=== PATIENT | male | born 1945 | race Caucasian/White ===

== ENCOUNTER 2017-07-04 09:46 | Emergency (ER) | payer OTHER ==
[~2017-07-04] VITALS: Ht 172.7 cm; Wt 70.3 kg
[~2017-07-04 09:46] MED LIST: ALBIPROI INH; ALBU90OI61 INH; AMOCLA875 PO; ANTOXYBENA LEFTEAR; ASPI81CH PO; ATOR20 PO; AZIT250 PO; Augmentin 875-1 EACH PO; BISA5EC PO; BUDE6HFA INH; BUSP10 PO; Bactrim Ds Tab1 EACH PO; Benadryl 50 mg50 MG PO; CENTRUM SILVER1 EAC2 PO; CEPH500 PO; CIPR500 PO; CITA20 PO; CODACE30 PO; CYCL10 PO; Ciprodex Otic7.5 ML LEFTEAR; DIPH50; DIPH50 PO; DOCU100 PO; Flonase 0.05% N16 GM; HYDACE5 PO; HYDACE5325 PO; HYDCOR2.5C PR; HYDR1TAB94 PO; Hydrocodone-Ap1 EA23 PO; IBUP800 PO; METPRE2; METPRE4DP PO; MULVITMIND PO; NEOPOLHCSU LEFTEAR; Norco 5-325 Ta1 EACH PO; OMEP20ER; OMEP20ER PO; OMEP40CA12 PO; ONDA4ODT MM; OXYACE5T PO; PRED20 PO; Pepcid20 MG PO; Prednisone20 MG PO; SALM50IP INH; TAMS.4ER PO; TIOT18 INH; UNK ABX; Ultram50 MG PO; VENLAFAXINE HC150 MG PO; Ventolin5 MG/1 ML INH; Zithromax250 MG PO; Zofran4 MG PO; [UNRECOGNIZED DRUG - REMARK]
[2017-07-04 10:58] LABS: BASOPHILS ABSOLUTE AUTO 0.03 K/mm3 (0.00-0.23); BASOPHILS PERCENT AUTO 0 % (0-2); EOSINOPHILS ABSOLUTE AUTO 0.19 K/mm3 (0.00-0.68); EOSINOPHILS PERCENT AUTO 3 % (0-6); Hematocrit 34.6 % (37.0-53.0); Hemoglobin 11.9 g/dL (13.5-17.5); IMMATURE GRAN ABSOLUTE AUTO 0.02 K/mm3 (0.00-0.10); IMMATURE GRAN PERCENT AUTO 0 % (0-1); LYMPHOCYTES ABSOLUTE AUTO 1.63 K/mm3 (0.84-5.20); LYMPHOCYTES PERCENT AUTO 23 % (21-46); MONOCYTES ABSOLUTE AUTO 0.48 K/mm3 (0.16-1.47); MONOCYTES PERCENT AUTO 7 % (4-13); Mean Corpuscular HGB 31.6 pg (26.0-34.0); Mean Corpuscular HGB Conc 34.4 g/dL (31.5-36.5); Mean Corpuscular Volume 92 fL (80-100); Mean Platelet Volume 8.2 fL (9.1-12.4); NEUTROPHILS ABSOLUTE AUTO 4.66 K/mm3 (1.96-9.15); NEUTROPHILS PERCENT AUTO 67 % (41-73); Platelet Count 268 K/mm3 (150-400); RDW Coefficient Variation 12.7 % (11.7-14.2); RDW Standard Deviation 43.2 fL (35.1-46.3); Red Blood Cell Count 3.76 M/mm3 (4.30-5.90); White Blood Cell Count 7.01 K/mm3 (4.00-11.30)
[2017-07-04 11:16] LABS: Alanine Aminotransfer (ALT/SGP 15 U/L (12-78); Albumin, Blood 3.4 g/dL (3.4-5.0); Albumin/Globulin Ratio 0.9 (0.8-1.8); Alk Phos 63 U/L (50-136); Anion Gap 7 mmol/L (6-16); Aspartate Aminotrans (AST/SGOT 15 U/L (12-37); Bilirubin, Total 0.4 mg/dL (0.1-1.0); Blood Urea Nitrogen 14 mg/dL (8-24); Bun/Creatinine Ratio 17.1 (12.0-20.0); CO2, Blood 27 mmol/L (21-32); Calcium, Blood 8.7 mg/dL (8.5-10.1); Chloride, Blood 104 mmol/L (98-108); Creatinine, Blood 0.82 mg/dL (0.60-1.20); Globulin, Blood 3.6 g/dL (2.2-4.0); Glomerular Filtration Rate >60 (60-); Glucose, Blood 91 mg/dL (70-99); Potassium, Blood 4.2 mmol/L (3.5-5.5); Sodium, Blood 138 mmol/L (136-145); Troponin I <0.015 ng/mL (0.000-0.040)
[2017-07-04] MEDS ORDERED: Advair Hfa 230-12 GM (11:42)
[2017-07-04] MEDS ORDERED: Omeprazole20 M1 (11:42)
[2017-07-04] MEDS ORDERED: SPIRIVA RESPIMAT4 G1 IH (11:43)
[2017-07-04] MEDS ORDERED: Prednisone20 MG PO (12:00)
[2017-07-04] MEDS ORDERED: Monodox100 MG PO (12:00)
[2017-07-04] MEDS ORDERED: Pseudoephedrine30 MG PO (12:00)
== END 2017-07-04 12:33 | disposition home or self-care (01) ==
LOC: ER 09:46
PROVIDERS: Emergency Medicine
DX: J44.1 Chronic obstructive pulmonary disease with (acute) exacerbation (principal); J32.9 Chronic sinusitis, unspecified; K21.9 Gastro-esophageal reflux disease without esophagitis; Z79.899 Other long term (current) drug therapy; Z87.891 Personal history of nicotine dependence
CPT/HCPCS: 36415; 71046; 80053; 84484; 85025; 93005; 93010; 99284

== ENCOUNTER 2017-12-10 16:10 | Emergency (ER) | payer OTHER ==
[~2017-12-10] VITALS: Ht 172.7 cm; Wt 72.6 kg
[~2017-12-10 16:10] MED LIST changes: +Advair Hfa 230-12 GM; +Monodox100 MG PO; +Omeprazole20 M1; +Pseudoephedrine30 MG PO; +SPIRIVA RESPIMAT4 G1 IH
[2017-12-10] MEDS ORDERED: NEOPOLHCSU LEFTEAR (16:37)
[2017-12-10] MEDS ORDERED: Norco 5-325 Ta1 EACH PO (16:37)
== END 2017-12-10 16:45 | disposition home or self-care (01) ==
LOC: ER 16:10
DX: H60.92 Unspecified otitis externa, left ear (principal); J44.9 Chronic obstructive pulmonary disease, unspecified; K21.9 Gastro-esophageal reflux disease without esophagitis; Z79.899 Other long term (current) drug therapy; Z79.51 Long term (current) use of inhaled steroids; Z87.891 Personal history of nicotine dependence
CPT/HCPCS: 99282

== ENCOUNTER 2017-12-11 14:45 | Emergency (ER) | payer OTHER ==
[~2017-12-11] VITALS: Ht 172.7 cm; Wt 72.6 kg
[2017-12-11 15:16] LABS: BASOPHILS ABSOLUTE AUTO 0.02 K/mm3 (0.00-0.23); BASOPHILS PERCENT AUTO 0 % (0-2); EOSINOPHILS PERCENT AUTO 5 % (0-6); Hematocrit 31.6 % (37.0-53.0); Hemoglobin 11.1 g/dL (13.5-17.5); IMMATURE GRAN ABSOLUTE AUTO 0.02 K/mm3 (0.00-0.10); IMMATURE GRAN PERCENT AUTO 0 % (0-1); LYMPHOCYTES ABSOLUTE AUTO 1.53 K/mm3 (0.84-5.20); LYMPHOCYTES PERCENT AUTO 23 % (21-46); MONOCYTES ABSOLUTE AUTO 0.48 K/mm3 (0.16-1.47); MONOCYTES PERCENT AUTO 7 % (4-13); Mean Corpuscular HGB 32.2 pg (26.0-34.0); Mean Corpuscular HGB Conc 35.1 g/dL (31.5-36.5); Mean Corpuscular Volume 92 fL (80-100); Mean Platelet Volume 8.5 fL (9.1-12.4); NEUTROPHILS ABSOLUTE AUTO 4.21 K/mm3 (1.96-9.15); NEUTROPHILS PERCENT AUTO 64 % (41-73); Platelet Count 222 K/mm3 (150-400); RDW Coefficient Variation 12.9 % (11.7-14.2); RDW Standard Deviation 42.6 fL (35.1-46.3); Red Blood Cell Count 3.45 M/mm3 (4.30-5.90); White Blood Cell Count 6.56 K/mm3 (4.00-11.30)
[2017-12-11 15:43] LABS: Albumin, Blood 3.4 g/dL (3.4-5.0); Albumin/Globulin Ratio 1.1 (0.8-1.8); Bilirubin, Total 0.3 mg/dL (0.1-1.0); Bun/Creatinine Ratio 16.5 (12.0-20.0); Calcium, Blood 8.1 mg/dL (8.5-10.1); Creatinine, Blood 1.27 mg/dL (0.60-1.20); Globulin, Blood 3.1 g/dL (2.2-4.0); Potassium, Blood 4.1 mmol/L (3.5-5.5); Total Protein, Blood 6.5 g/dL (6.4-8.2)
== END 2017-12-11 17:00 | disposition home or self-care (01) ==
LOC: ER 14:45
PROVIDERS: Emergency Medicine
DX: I95.9 Hypotension, unspecified (principal); E86.0 Dehydration; F11.90 Opioid use, unspecified, uncomplicated; J44.9 Chronic obstructive pulmonary disease, unspecified; K21.9 Gastro-esophageal reflux disease without esophagitis; Z79.899 Other long term (current) drug therapy
CPT/HCPCS: 36415; 80053; 85025; 93005; 93010; 99284-25; J7030

== ENCOUNTER 2018-01-17 22:02 | Emergency (ER) | payer OTHER ==
[~2018-01-17] VITALS: Ht 172.7 cm; Wt 72.6 kg
[2018-01-17 22:19] LABS: BASOPHILS ABSOLUTE AUTO 0.04 K/mm3 (0.00-0.23); BASOPHILS PERCENT AUTO 1 % (0-2); EOSINOPHILS ABSOLUTE AUTO 0.15 K/mm3 (0.00-0.68); EOSINOPHILS PERCENT AUTO 2 % (0-6); Hematocrit 32.6 % (37.0-53.0); Hemoglobin 11.3 g/dL (13.5-17.5); IMMATURE GRAN ABSOLUTE AUTO 0.03 K/mm3 (0.00-0.10); IMMATURE GRAN PERCENT AUTO 0 % (0-1); LYMPHOCYTES PERCENT AUTO 28 % (21-46); MONOCYTES ABSOLUTE AUTO 0.65 K/mm3 (0.16-1.47); MONOCYTES PERCENT AUTO 8 % (4-13); Mean Corpuscular HGB 31.9 pg (26.0-34.0); Mean Corpuscular HGB Conc 34.7 g/dL (31.5-36.5); Mean Corpuscular Volume 92 fL (80-100); Mean Platelet Volume 8.7 fL (9.1-12.4); NEUTROPHILS PERCENT AUTO 61 % (41-73); Platelet Count 240 K/mm3 (150-400); RDW Standard Deviation 44.2 fL (35.1-46.3); Red Blood Cell Count 3.54 M/mm3 (4.30-5.90); White Blood Cell Count 8.17 K/mm3 (4.00-11.30)
[2018-01-17 22:37] LABS: Troponin I <0.015 ng/mL (0.000-0.040)
[2018-01-17 22:38] LABS: Alanine Aminotransfer (ALT/SGP 22 U/L (12-78); Albumin, Blood 3.6 g/dL (3.4-5.0); Albumin/Globulin Ratio 1.2 (0.8-1.8); Alk Phos 63 U/L (50-136); Anion Gap 9 mmol/L (6-16); Aspartate Aminotrans (AST/SGOT 21 U/L (12-37); Bilirubin, Total 0.3 mg/dL (0.1-1.0); Blood Urea Nitrogen 19 mg/dL (8-24); Bun/Creatinine Ratio 14.4 (12.0-20.0); CO2, Blood 26 mmol/L (21-32); Calcium, Blood 8.4 mg/dL (8.5-10.1); Chloride, Blood 105 mmol/L (98-108); Creatinine, Blood 1.32 mg/dL (0.60-1.20); Globulin, Blood 3.1 g/dL (2.2-4.0); Glomerular Filtration Rate 57 (60-); Glucose, Blood 138 mg/dL (70-99); Potassium, Blood 3.7 mmol/L (3.5-5.5); Sodium, Blood 140 mmol/L (136-145); Total Protein, Blood 6.7 g/dL (6.4-8.2)
== END 2018-01-18 00:31 | disposition home or self-care (01) ==
LOC: ER 22:02
PROVIDERS: Emergency Medicine
DX: R55 Syncope and collapse (principal); Z79.899 Other long term (current) drug therapy; J44.9 Chronic obstructive pulmonary disease, unspecified; K21.9 Gastro-esophageal reflux disease without esophagitis; Z87.891 Personal history of nicotine dependence
CPT/HCPCS: 36415; 70450; 80053; 83880; 84484; 85025; 93005; 93010; 96374; 99284-25; J2405

== ENCOUNTER 2018-02-09 11:16 | Emergency (ER) | payer OTHER ==
[~2018-02-09] VITALS: Ht 172.7 cm; Wt 77.1 kg
[2018-02-09 12:06] LABS: BASOPHILS ABSOLUTE AUTO 0.03 K/mm3 (0.00-0.23); BASOPHILS PERCENT AUTO 1 % (0-2); EOSINOPHILS ABSOLUTE AUTO 0.24 K/mm3 (0.00-0.68); EOSINOPHILS PERCENT AUTO 4 % (0-6); Hematocrit 36.2 % (37.0-53.0); Hemoglobin 12.4 g/dL (13.5-17.5); IMMATURE GRAN ABSOLUTE AUTO 0.02 K/mm3 (0.00-0.10); IMMATURE GRAN PERCENT AUTO 0 % (0-1); LYMPHOCYTES ABSOLUTE AUTO 1.75 K/mm3 (0.84-5.20); LYMPHOCYTES PERCENT AUTO 28 % (21-46); MONOCYTES ABSOLUTE AUTO 0.52 K/mm3 (0.16-1.47); MONOCYTES PERCENT AUTO 8 % (4-13); Mean Corpuscular HGB 31.2 pg (26.0-34.0); Mean Corpuscular HGB Conc 34.3 g/dL (31.5-36.5); Mean Corpuscular Volume 91 fL (80-100); Mean Platelet Volume 8.9 fL (9.1-12.4); NEUTROPHILS ABSOLUTE AUTO 3.72 K/mm3 (1.96-9.15); NEUTROPHILS PERCENT AUTO 59 % (41-73); Platelet Count 274 K/mm3 (150-400); RDW Standard Deviation 42.4 fL (35.1-46.3); Red Blood Cell Count 3.98 M/mm3 (4.30-5.90); White Blood Cell Count 6.28 K/mm3 (4.00-11.30)
[2018-02-09 12:24] LABS: Alanine Aminotransfer (ALT/SGP 22 U/L (12-78); Albumin, Blood 3.7 g/dL (3.4-5.0); Albumin/Globulin Ratio 1.2 (0.8-1.8); Alk Phos 72 U/L (50-136); Anion Gap 7 mmol/L (6-16); Aspartate Aminotrans (AST/SGOT 17 U/L (12-37); Bilirubin, Total 0.6 mg/dL (0.1-1.0); Blood Urea Nitrogen 13 mg/dL (8-24); Bun/Creatinine Ratio 12.7 (12.0-20.0); CO2, Blood 26 mmol/L (21-32); Calcium, Blood 8.6 mg/dL (8.5-10.1); Chloride, Blood 107 mmol/L (98-108); Creatinine, Blood 1.02 mg/dL (0.60-1.20); Globulin, Blood 3.2 g/dL (2.2-4.0); Glomerular Filtration Rate >60 (60-); Glucose, Blood 82 mg/dL (70-99); Potassium, Blood 4.3 mmol/L (3.5-5.5); Sodium, Blood 140 mmol/L (136-145); Total Protein, Blood 6.9 g/dL (6.4-8.2); Troponin I <0.015 ng/mL (0.000-0.040)
== END 2018-02-09 14:14 | disposition home or self-care (01) ==
LOC: ER 11:16
PROVIDERS: Emergency Medicine
DX: R55 Syncope and collapse (principal); F41.9 Anxiety disorder, unspecified; J44.9 Chronic obstructive pulmonary disease, unspecified; K21.9 Gastro-esophageal reflux disease without esophagitis; Z79.899 Other long term (current) drug therapy; Z79.51 Long term (current) use of inhaled steroids; Z87.891 Personal history of nicotine dependence
CPT/HCPCS: 71046; 80053; 84484; 85025; 93005; 93010; 99284-25

== ENCOUNTER → 2018-03-07 | Outpatient (CLI) | payer OTHER | LOC: LAB SHORT 10:25 → LAB 10:25 | DX: S51.002A Unspecified open wound of left elbow, initial encounter (principal) | CPT/HCPCS: 87070; 87205 ==

== ENCOUNTER 2019-03-01 13:04 | Emergency (ER) | payer OTHER ==
[~2019-03-01] VITALS: Ht 172.7 cm; Wt 79.4 kg
[2019-03-01] MEDS ORDERED: CETI5 (13:44)
[2019-03-01] MEDS ORDERED: MOMENI (13:44)
[2019-03-01 13:56] LABS: BASOPHILS ABSOLUTE AUTO 0.04 K/mm3 (0.00-0.23); BASOPHILS PERCENT AUTO 1 % (0-2); EOSINOPHILS ABSOLUTE AUTO 0.17 K/mm3 (0.00-0.68); EOSINOPHILS PERCENT AUTO 2 % (0-6); Hematocrit 35.6 % (37.0-53.0); Hemoglobin 12.1 g/dL (13.5-17.5); IMMATURE GRAN ABSOLUTE AUTO 0.05 K/mm3 (0.00-0.10); IMMATURE GRAN PERCENT AUTO 1 % (0-1); LYMPHOCYTES ABSOLUTE AUTO 2.05 K/mm3 (0.84-5.20); LYMPHOCYTES PERCENT AUTO 26 % (21-46); MONOCYTES ABSOLUTE AUTO 0.73 K/mm3 (0.16-1.47); MONOCYTES PERCENT AUTO 9 % (4-13); Mean Corpuscular Volume 94 fL (80-100); Mean Platelet Volume 8.8 fL (9.1-12.4); NEUTROPHILS PERCENT AUTO 62 % (41-73); Platelet Count 263 K/mm3 (150-400); RDW Coefficient Variation 13.4 % (11.7-14.2); RDW Standard Deviation 45.9 fL (35.1-46.3); Red Blood Cell Count 3.78 M/mm3 (4.30-5.90); White Blood Cell Count 8.04 K/mm3 (4.00-11.30)
[2019-03-01 14:17] LABS: Alanine Aminotransfer (ALT/SGP 20 U/L (12-78); Albumin, Blood 3.6 g/dL (3.4-5.0); Albumin/Globulin Ratio 1.2 (0.8-1.8); Alk Phos 68 U/L (50-136); Anion Gap 4 mmol/L (6-16); Aspartate Aminotrans (AST/SGOT 15 U/L (12-37); Bilirubin, Total 0.5 mg/dL (0.1-1.0); Blood Urea Nitrogen 17 mg/dL (8-24); Bun/Creatinine Ratio 18.1 (12.0-20.0); CO2, Blood 25 mmol/L (21-32); Calcium, Blood 8.4 mg/dL (8.5-10.1); Chloride, Blood 110 mmol/L (98-108); Creatinine, Blood 0.94 mg/dL (0.60-1.20); Globulin, Blood 3.1 g/dL (2.2-4.0); Glomerular Filtration Rate >60 (60-); Glucose, Blood 108 mg/dL (70-99); Potassium, Blood 4.3 mmol/L (3.5-5.5); Sodium, Blood 139 mmol/L (136-145); Total Protein, Blood 6.7 g/dL (6.4-8.2); Troponin I 0.017 ng/mL (0.000-0.040)
[2019-03-01] MEDS ORDERED: PRED20 PO (14:55)
[2019-03-01] MEDS ORDERED: AZIT250 PO (14:55)
== END 2019-03-01 15:52 | disposition home or self-care (01) ==
LOC: ER 13:04
PROVIDERS: Emergency Medicine
DX: J44.9 Chronic obstructive pulmonary disease, unspecified (principal); J18.1 Lobar pneumonia, unspecified organism; K21.9 Gastro-esophageal reflux disease without esophagitis; G47.30 Sleep apnea, unspecified; Z87.891 Personal history of nicotine dependence; Z79.899 Other long term (current) drug therapy
CPT/HCPCS: 36415; 71045; 80053; 84484; 85025; 93005; 93010; 94644; 96365; 96375; 99285-25; J0696; J2930

== ENCOUNTER 2019-03-08 21:33 | Emergency (ER) | payer OTHER ==
[~2019-03-08] VITALS: Ht 172.7 cm; Wt 83.9 kg
[~2019-03-08 21:33] MED LIST changes: -Advair Hfa 230-12 GM; +Advair Hfa 230-12 GM INH; +CETI5 PO; +MOMENI; -Omeprazole20 M1; +Omeprazole20 M1 PO; -SPIRIVA RESPIMAT4 G1 IH; +SPIRIVA RESPIMAT4 G1 INH
[2019-03-08 22:21] LABS: BASOPHILS ABSOLUTE AUTO 0.03 K/mm3 (0.00-0.23); BASOPHILS PERCENT AUTO 0 % (0-2); EOSINOPHILS ABSOLUTE AUTO 0.14 K/mm3 (0.00-0.68); EOSINOPHILS PERCENT AUTO 2 % (0-6); Hematocrit 33.7 % (37.0-53.0); Hemoglobin 11.2 g/dL (13.5-17.5); IMMATURE GRAN ABSOLUTE AUTO 0.06 K/mm3 (0.00-0.10); IMMATURE GRAN PERCENT AUTO 1 % (0-1); LYMPHOCYTES ABSOLUTE AUTO 2.96 K/mm3 (0.84-5.20); LYMPHOCYTES PERCENT AUTO 32 % (21-46); MONOCYTES ABSOLUTE AUTO 0.65 K/mm3 (0.16-1.47); MONOCYTES PERCENT AUTO 7 % (4-13); Mean Corpuscular HGB 32.1 pg (26.0-34.0); Mean Corpuscular HGB Conc 33.2 g/dL (31.5-36.5); Mean Corpuscular Volume 97 fL (80-100); NEUTROPHILS PERCENT AUTO 59 % (41-73); Platelet Count 218 K/mm3 (150-400); RDW Coefficient Variation 13.6 % (11.7-14.2); RDW Standard Deviation 48.6 fL (35.1-46.3); Red Blood Cell Count 3.49 M/mm3 (4.30-5.90); White Blood Cell Count 9.24 K/mm3 (4.00-11.30)
[2019-03-08 22:43] LABS: Alanine Aminotransfer (ALT/SGP 22 U/L (12-78); Albumin, Blood 3.2 g/dL (3.4-5.0); Albumin/Globulin Ratio 1.2 (0.8-1.8); Alk Phos 59 U/L (50-136); Anion Gap 7 mmol/L (6-16); Aspartate Aminotrans (AST/SGOT 18 U/L (12-37); Bilirubin, Total 0.2 mg/dL (0.1-1.0); Blood Urea Nitrogen 28 mg/dL (8-24); Bun/Creatinine Ratio 22.8 (12.0-20.0); CO2, Blood 25 mmol/L (21-32); Calcium, Blood 8.2 mg/dL (8.5-10.1); Chloride, Blood 112 mmol/L (98-108); Creatinine, Blood 1.23 mg/dL (0.60-1.20); Globulin, Blood 2.7 g/dL (2.2-4.0); Glomerular Filtration Rate >60 (60-); Glucose, Blood 96 mg/dL (70-99); Potassium, Blood 4.1 mmol/L (3.5-5.5); Sodium, Blood 144 mmol/L (136-145); Total Protein, Blood 5.9 g/dL (6.4-8.2)
[2019-03-08] MEDS ORDERED: ALBU2.5V5 INH (23:06)
== END 2019-03-08 23:17 | disposition home or self-care (01) ==
LOC: ER 21:33
PROVIDERS: Emergency Medicine
DX: J44.9 Chronic obstructive pulmonary disease, unspecified (principal); J70.5 Respiratory conditions due to smoke inhalation; K21.9 Gastro-esophageal reflux disease without esophagitis; Z87.891 Personal history of nicotine dependence; Z79.899 Other long term (current) drug therapy
CPT/HCPCS: 36415; 71046; 80053; 83880; 84484; 85025; 93005; 93010; 94640; 99284-25; J7512

== ENCOUNTER 2019-05-16 21:10 | Emergency (ER) | payer OTHER ==
[~2019-05-16] VITALS: Ht 172.7 cm; Wt 83.9 kg
[~2019-05-16 21:10] MED LIST changes: +ALBU2.5V5 INH
[2019-05-16 21:26] LABS: BASOPHILS ABSOLUTE AUTO 0.03 K/mm3 (0.00-0.23); BASOPHILS PERCENT AUTO 0 % (0-2); EOSINOPHILS ABSOLUTE AUTO 0.18 K/mm3 (0.00-0.68); EOSINOPHILS PERCENT AUTO 2 % (0-6); Hematocrit 34.3 % (37.0-53.0); IMMATURE GRAN ABSOLUTE AUTO 0.02 K/mm3 (0.00-0.10); IMMATURE GRAN PERCENT AUTO 0 % (0-1); LYMPHOCYTES ABSOLUTE AUTO 2.04 K/mm3 (0.84-5.20); LYMPHOCYTES PERCENT AUTO 26 % (21-46); MONOCYTES ABSOLUTE AUTO 0.61 K/mm3 (0.16-1.47); MONOCYTES PERCENT AUTO 8 % (4-13); Mean Corpuscular HGB 31.8 pg (26.0-34.0); Mean Corpuscular Volume 91 fL (80-100); Mean Platelet Volume 8.4 fL (9.1-12.4); NEUTROPHILS PERCENT AUTO 64 % (41-73); Platelet Count 259 K/mm3 (150-400); RDW Coefficient Variation 13.1 % (11.7-14.2); RDW Standard Deviation 43.7 fL (35.1-46.3); Red Blood Cell Count 3.77 M/mm3 (4.30-5.90); White Blood Cell Count 7.98 K/mm3 (4.00-11.30)
[2019-05-16 21:47] LABS: Alanine Aminotransfer (ALT/SGP 26 U/L (12-78); Albumin, Blood 3.6 g/dL (3.4-5.0); Albumin/Globulin Ratio 1.2 (0.8-1.8); Alk Phos 69 U/L (50-136); Anion Gap 8 mmol/L (6-16); Aspartate Aminotrans (AST/SGOT 15 U/L (12-37); Bilirubin, Total 0.4 mg/dL (0.1-1.0); Blood Urea Nitrogen 27 mg/dL (8-24); Bun/Creatinine Ratio 17.8 (12.0-20.0); CO2, Blood 24 mmol/L (21-32); Calcium, Blood 8.9 mg/dL (8.5-10.1); Chloride, Blood 106 mmol/L (98-108); Creatinine, Blood 1.52 mg/dL (0.60-1.20); Globulin, Blood 2.9 g/dL (2.2-4.0); Glomerular Filtration Rate 48 (60-); Glucose, Blood 127 mg/dL (70-99); Potassium, Blood 4.1 mmol/L (3.5-5.5); Sodium, Blood 138 mmol/L (136-145); Total Protein, Blood 6.5 g/dL (6.4-8.2); Troponin I <0.015 ng/mL (0.000-0.040)
== END 2019-05-16 23:51 | disposition home or self-care (01) ==
LOC: ER 21:10
PROVIDERS: Emergency Medicine
DX: R55 Syncope and collapse (principal); Z79.899 Other long term (current) drug therapy; J44.9 Chronic obstructive pulmonary disease, unspecified; G47.30 Sleep apnea, unspecified; Z87.891 Personal history of nicotine dependence; K21.9 Gastro-esophageal reflux disease without esophagitis
CPT/HCPCS: 71045; 80053; 84484; 85025; 93005; 93010; 96360; 96361; 99284-25; J7030

== ENCOUNTER 2019-06-19 11:58 | Day surgery (SDC) | payer OTHER ==
[~2019-06-19] VITALS: Ht 172.7 cm; Wt 81.5 kg
== END 2019-06-19 13:38 | disposition home or self-care (01) ==
LOC: ORSCSDS 11:58
PROVIDERS: Internal Medicine Gastroenterology
PROC: 0DBM8ZX Excision of Descending Colon, Via Natural or Artificial Opening Endoscopic, Diagnostic (ICD-10-PCS; principal; 2019-06-19 14:00)
PROC: 0DBN8ZX Excision of Sigmoid Colon, Via Natural or Artificial Opening Endoscopic, Diagnostic (ICD-10-PCS; principal; 2019-06-19 14:00)
DX: Z12.11 Encounter for screening for malignant neoplasm of colon (principal); D12.4 Benign neoplasm of descending colon; K63.5 Polyp of colon; Z86.010 Personal history of colon polyps; J44.9 Chronic obstructive pulmonary disease, unspecified; G47.33 Obstructive sleep apnea (adult) (pediatric); Z87.891 Personal history of nicotine dependence; Z79.899 Other long term (current) drug therapy
CPT/HCPCS: 88305; J2704; J7120

== ENCOUNTER → 2019-09-03 | Outpatient (CLI) | payer OTHER | END | disposition home or self-care (01) | LOC: LAB SHORT 07:40 → LAB 07:40 → LAB FUT 08-29 09:40 → EDSTATUS 08-29 09:40 | DX: K21.9 Gastro-esophageal reflux disease without esophagitis (principal) | CPT/HCPCS: 87338 ==

== ENCOUNTER 2019-10-30 11:30 | Day surgery (SDC) | payer OTHER ==
[~2019-10-30] VITALS: Ht 172.7 cm; Wt 84.0 kg
[~2019-10-30 11:30] MED LIST changes: +ACIDOPHILUS1 EAC3 PO; +Anusol-HC 2.5%30 GM PR; +FLUTICASONE-SA1 EA11 IH; +IPRATROPIUM BRO30 ML; +PANT40 PO; +PROAIR DIGIHAL90 MCG INH; +TRIA15CR3; +ZYRTEC10 M2 PO
== END 2019-10-30 12:36 | disposition home or self-care (01) ==
LOC: ORSCSDS 11:30
PROVIDERS: Internal Medicine Gastroenterology
PROC: 0D757ZZ Dilation of Esophagus, Via Natural or Artificial Opening (ICD-10-PCS; principal; 2019-10-30 12:45)
PROC: 0DB58ZX Excision of Esophagus, Via Natural or Artificial Opening Endoscopic, Diagnostic (ICD-10-PCS; principal; 2019-10-30 12:45)
PROC: 0DB68ZX Excision of Stomach, Via Natural or Artificial Opening Endoscopic, Diagnostic (ICD-10-PCS; principal; 2019-10-30 12:45)
DX: R13.10 Dysphagia, unspecified (principal); K21.9 Gastro-esophageal reflux disease without esophagitis; K22.70 Barrett's esophagus without dysplasia; K31.7 Polyp of stomach and duodenum; K22.2 Esophageal obstruction; G47.33 Obstructive sleep apnea (adult) (pediatric); Z79.899 Other long term (current) drug therapy
CPT/HCPCS: 88305; 88342; J2704; J7120

== ENCOUNTER → 2020-10-01 | Outpatient (CLI) | payer OTHER ==
[2020-10-01 11:56] LABS: BASOPHILS ABSOLUTE AUTO 0.01 K/mm3 (0.00-0.23); BASOPHILS PERCENT AUTO 0 % (0-2); EOSINOPHILS ABSOLUTE AUTO 0.24 K/mm3 (0.00-0.68); EOSINOPHILS PERCENT AUTO 4 % (0-6); Hematocrit 36.2 % (37.0-53.0); Hemoglobin 12.6 g/dL (13.5-17.5); IMMATURE GRAN ABSOLUTE AUTO 0.02 K/mm3 (0.00-0.10); IMMATURE GRAN PERCENT AUTO 0 % (0-1); LYMPHOCYTES ABSOLUTE AUTO 1.27 K/mm3 (0.84-5.20); LYMPHOCYTES PERCENT AUTO 22 % (21-46); MONOCYTES ABSOLUTE AUTO 0.56 K/mm3 (0.16-1.47); MONOCYTES PERCENT AUTO 10 % (4-13); Mean Corpuscular HGB 31.4 pg (26.0-34.0); Mean Corpuscular HGB Conc 34.8 g/dL (31.5-36.5); Mean Corpuscular Volume 90 fL (80-100); Mean Platelet Volume 8.8 fL (9.1-12.4); NEUTROPHILS ABSOLUTE AUTO 3.64 K/mm3 (1.96-9.15); NEUTROPHILS PERCENT AUTO 63 % (41-73); Platelet Count 221 K/mm3 (150-400); RDW Coefficient Variation 13.1 % (11.7-14.2); RDW Standard Deviation 43.1 fL (35.1-46.3); Red Blood Cell Count 4.01 M/mm3 (4.30-5.90); White Blood Cell Count 5.74 K/mm3 (4.00-11.30)
[2020-10-01 12:10] LABS: Alanine Aminotransfer (ALT/SGP 24 U/L (12-78); Albumin, Blood 3.7 g/dL (3.4-5.0); Alk Phos 86 U/L (50-136); Anion Gap 4 mmol/L (6-16); Aspartate Aminotrans (AST/SGOT 15 U/L (12-37); Bilirubin, Total 0.4 mg/dL (0.1-1.0); Blood Urea Nitrogen 13 mg/dL (8-24); Bun/Creatinine Ratio 12.9 (12.0-20.0); CO2, Blood 28 mmol/L (21-32); Calcium, Blood 8.9 mg/dL (8.5-10.1); Chloride, Blood 105 mmol/L (98-108); Creatinine, Blood 1.01 mg/dL (0.60-1.20); Globulin, Blood 3.6 g/dL (2.2-4.0); Glomerular Filtration Rate >60 (60-); Glucose, Blood 95 mg/dL (70-99); Potassium, Blood 4.1 mmol/L (3.5-5.5); Sodium, Blood 137 mmol/L (136-145); Total Protein, Blood 7.3 g/dL (6.4-8.2)
== END | disposition home or self-care (01) ==
LOC: LAB 10:05 → LAB SHORT 10:05
PROVIDERS: Physician Assistant
DX: R06.02 Shortness of breath (principal); R10.9 Unspecified abdominal pain
CPT/HCPCS: 80053; 83690; 85025

== ENCOUNTER 2021-02-14 20:21 | Emergency (ER) | payer OTHER ==
[~2021-02-14] VITALS: Ht 170.2 cm; Wt 85.3 kg
[2021-02-14 20:38] LABS: BASOPHILS ABSOLUTE AUTO 0.03 K/mm3 (0.00-0.23); BASOPHILS PERCENT AUTO 1 % (0-2); EOSINOPHILS ABSOLUTE AUTO 0.22 K/mm3 (0.00-0.68); EOSINOPHILS PERCENT AUTO 4 % (0-6); Hematocrit 30.4 % (37.0-53.0); Hemoglobin 10.4 g/dL (13.5-17.5); IMMATURE GRAN ABSOLUTE AUTO 0.01 K/mm3 (0.00-0.10); IMMATURE GRAN PERCENT AUTO 0 % (0-1); LYMPHOCYTES PERCENT AUTO 31 % (21-46); MONOCYTES ABSOLUTE AUTO 0.55 K/mm3 (0.16-1.47); MONOCYTES PERCENT AUTO 9 % (4-13); Mean Corpuscular HGB 31.3 pg (26.0-34.0); Mean Corpuscular HGB Conc 34.2 g/dL (31.5-36.5); Mean Corpuscular Volume 92 fL (80-100); Mean Platelet Volume 8.5 fL (9.1-12.4); NEUTROPHILS ABSOLUTE AUTO 3.36 K/mm3 (1.96-9.15); NEUTROPHILS PERCENT AUTO 55 % (41-73); Platelet Count 205 K/mm3 (150-400); RDW Coefficient Variation 13.2 % (11.7-14.2); RDW Standard Deviation 43.9 fL (35.1-46.3); Red Blood Cell Count 3.32 M/mm3 (4.30-5.90); White Blood Cell Count 6.07 K/mm3 (4.00-11.30)
[2021-02-14 20:57] LABS: Albumin, Blood 2.8 g/dL (3.4-5.0); Bilirubin, Total 0.2 mg/dL (0.1-1.0); Bun/Creatinine Ratio 14.2 (12.0-20.0); Calcium, Blood 7.8 mg/dL (8.5-10.1); Creatinine, Blood 1.34 mg/dL (0.60-1.20); Globulin, Blood 2.7 g/dL (2.2-4.0); Potassium, Blood 3.6 mmol/L (3.5-5.5); Total Protein, Blood 5.5 g/dL (6.4-8.2); Troponin I 0.019 ng/mL (0.000-0.040)
[2021-02-14 21:37] LABS: SARS-Cov-2 (COVID-19) PCR, MMC NEGATIVE (NEGATIVE)
[2021-02-14 21:50] LABS: Source, Urine Voided
[2021-02-14 21:54] LABS: Appearance, Urine Clear (Clear); Bilirubin, Urine Neg (Neg); Blood, Urine Neg (Neg); Color, Urine Yellow (P-Yellow); Glucose Qualitative, Urine Neg (Neg); Ketones, Urine Neg (Neg); Leukocyte Esterase, Urine 1+ (Neg); Nitrite, Urine Neg (Neg); Protein, Urine 2+ (Neg); Urobilinogen, Urine 1+ (Normal)
[2021-02-14 22:02] LABS: Bacteria Mod /hpf; Mucus Mod (0-Heavy); Red Blood Cells, Urine 0-2 /hpf (0-2); Squamous Epithelial Cells Not Seen /hpf (Few)
[2021-02-14 22:03] LABS: Hyaline Casts 50-100 /lpf (0-2)
== END 2021-02-14 23:18 | disposition home or self-care (01) ==
LOC: ER 20:21
PROVIDERS: Emergency Medicine
DX: R55 Syncope and collapse (principal); Z20.822 Contact with and (suspected) exposure to COVID-19; I10 Essential (primary) hypertension; J44.9 Chronic obstructive pulmonary disease, unspecified; Z79.899 Other long term (current) drug therapy; K21.9 Gastro-esophageal reflux disease without esophagitis; G47.30 Sleep apnea, unspecified; Z87.891 Personal history of nicotine dependence
CPT/HCPCS: 71045; 80053; 81001; 83880; 84484; 85025; 93005; 93010; 96361; 96374; 99285-25; J2405; J7030; U0004

== ENCOUNTER → 2021-02-25 | Outpatient (CLI) | payer OTHER | END | disposition home or self-care (01) | LOC: LAB SHORT 06:30 | DX: K29.00 Acute gastritis without bleeding (principal) | CPT/HCPCS: 87338 ==

== ENCOUNTER 2021-06-11 11:59 | Emergency (ER) | payer OTHER ==
[~2021-06-11] VITALS: Ht 172.7 cm; Wt 83.9 kg
[2021-06-11 12:42] LABS: BASOPHILS ABSOLUTE AUTO 0.03 K/mm3 (0.00-0.23); BASOPHILS PERCENT AUTO 1 % (0-2); EOSINOPHILS ABSOLUTE AUTO 0.13 K/mm3 (0.00-0.68); EOSINOPHILS PERCENT AUTO 2 % (0-6); Hemoglobin 11.9 g/dL (13.5-17.5); IMMATURE GRAN ABSOLUTE AUTO 0.02 K/mm3 (0.00-0.10); IMMATURE GRAN PERCENT AUTO 0 % (0-1); LYMPHOCYTES ABSOLUTE AUTO 1.33 K/mm3 (0.84-5.20); LYMPHOCYTES PERCENT AUTO 22 % (21-46); MONOCYTES ABSOLUTE AUTO 0.53 K/mm3 (0.16-1.47); MONOCYTES PERCENT AUTO 9 % (4-13); Mean Corpuscular HGB 31.2 pg (26.0-34.0); Mean Corpuscular Volume 89 fL (80-100); Mean Platelet Volume 8.7 fL (9.1-12.4); NEUTROPHILS ABSOLUTE AUTO 3.91 K/mm3 (1.96-9.15); NEUTROPHILS PERCENT AUTO 66 % (41-73); Platelet Count 236 K/mm3 (150-400); RDW Coefficient Variation 13.4 % (11.7-14.2); RDW Standard Deviation 43.4 fL (35.1-46.3); Red Blood Cell Count 3.82 M/mm3 (4.30-5.90); White Blood Cell Count 5.95 K/mm3 (4.00-11.30)
[2021-06-11 13:10] LABS: Alanine Aminotransfer (ALT/SGP 25 U/L (12-78); Albumin, Blood 3.7 g/dL (3.4-5.0); Albumin/Globulin Ratio 1.2 (0.8-1.8); Alk Phos 73 U/L (50-136); Anion Gap 5 mmol/L (6-16); Aspartate Aminotrans (AST/SGOT 20 U/L (12-37); Bilirubin, Total 0.5 mg/dL (0.1-1.0); Blood Urea Nitrogen 19 mg/dL (8-24); Bun/Creatinine Ratio 17.4 (12.0-20.0); CO2, Blood 24 mmol/L (21-32); Calcium, Blood 8.5 mg/dL (8.5-10.1); Chloride, Blood 111 mmol/L (98-108); Creatinine, Blood 1.09 mg/dL (0.60-1.20); Globulin, Blood 3.1 g/dL (2.2-4.0); Glomerular Filtration Rate >60 (60-); Glucose, Blood 117 mg/dL (70-99); Potassium, Blood 4.1 mmol/L (3.5-5.5); Sodium, Blood 140 mmol/L (136-145); Total Protein, Blood 6.8 g/dL (6.4-8.2)
== END 2021-06-11 14:36 | disposition home or self-care (01) ==
LOC: ER 11:59
PROVIDERS: Physician Assistant
DX: R07.89 Other chest pain (principal); J44.9 Chronic obstructive pulmonary disease, unspecified; K21.9 Gastro-esophageal reflux disease without esophagitis; G47.33 Obstructive sleep apnea (adult) (pediatric); Z79.899 Other long term (current) drug therapy
CPT/HCPCS: 36415; 71046; 80053; 83880; 84484; 85025; 93005; 93010; 96374; 99284-25; J1885

== ENCOUNTER 2022-01-18 08:10 | Emergency (ER) | payer OTHER ==
[~2022-01-18] VITALS: Ht 170.2 cm; Wt 83.9 kg
[2022-01-18 10:03] LABS: BASOPHILS ABSOLUTE AUTO 0.01 K/mm3 (0.00-0.23); BASOPHILS PERCENT AUTO 0 % (0-2); EOSINOPHILS PERCENT AUTO 0 % (0-6); Hematocrit 38.9 % (37.0-53.0); Hemoglobin 13.5 g/dL (13.5-17.5); IMMATURE GRAN ABSOLUTE AUTO 0.03 K/mm3 (0.00-0.10); IMMATURE GRAN PERCENT AUTO 0 % (0-1); LYMPHOCYTES ABSOLUTE AUTO 0.32 K/mm3 (0.84-5.20); LYMPHOCYTES PERCENT AUTO 3 % (21-46); MONOCYTES ABSOLUTE AUTO 0.34 K/mm3 (0.16-1.47); MONOCYTES PERCENT AUTO 4 % (4-13); Mean Corpuscular HGB 30.9 pg (26.0-34.0); Mean Corpuscular HGB Conc 34.7 g/dL (31.5-36.5); Mean Corpuscular Volume 89 fL (80-100); Mean Platelet Volume 8.6 fL (9.1-12.4); NEUTROPHILS ABSOLUTE AUTO 8.91 K/mm3 (1.96-9.15); NEUTROPHILS PERCENT AUTO 93 % (41-73); Platelet Count 259 K/mm3 (150-400); RDW Coefficient Variation 13.3 % (11.7-14.2); RDW Standard Deviation 43.5 fL (35.1-46.3); Red Blood Cell Count 4.37 M/mm3 (4.30-5.90); White Blood Cell Count 9.61 K/mm3 (4.00-11.30)
[2022-01-18 10:46] LABS: Albumin, Blood 4.1 g/dL (3.4-5.0); Albumin/Globulin Ratio 1.2 (0.8-1.8); Bilirubin, Total 0.6 mg/dL (0.1-1.0); Calcium, Blood 8.8 mg/dL (8.5-10.1); Creatinine, Blood 1.04 mg/dL (0.60-1.20); Globulin, Blood 3.5 g/dL (2.2-4.0); Potassium, Blood 4.3 mmol/L (3.5-5.5); Total Protein, Blood 7.6 g/dL (6.4-8.2)
[2022-01-18] MEDS ORDERED: ONDA4ODT MM (12:52)
== END 2022-01-18 12:56 | disposition home or self-care (01) ==
LOC: ER 08:10
PROVIDERS: Physician Assistant
DX: K52.9 Noninfective gastroenteritis and colitis, unspecified (principal); J44.9 Chronic obstructive pulmonary disease, unspecified; G47.33 Obstructive sleep apnea (adult) (pediatric); K21.9 Gastro-esophageal reflux disease without esophagitis; Z79.899 Other long term (current) drug therapy
CPT/HCPCS: 36415; 74177; 80053; 83690; 85025; 93005; 93010; J2405; J7030; Q9967

== ENCOUNTER 2022-01-19 23:41 | Emergency (ER) | payer OTHER ==
[~2022-01-19] VITALS: Ht 172.7 cm; Wt 81.7 kg
[2022-01-19 23:59] LABS: BASOPHILS ABSOLUTE AUTO 0.01 K/mm3 (0.00-0.23); BASOPHILS PERCENT AUTO 0 % (0-2); EOSINOPHILS ABSOLUTE AUTO 0.06 K/mm3 (0.00-0.68); EOSINOPHILS PERCENT AUTO 1 % (0-6); Hematocrit 34.7 % (37.0-53.0); Hemoglobin 11.8 g/dL (13.5-17.5); IMMATURE GRAN ABSOLUTE AUTO 0.02 K/mm3 (0.00-0.10); IMMATURE GRAN PERCENT AUTO 0 % (0-1); LYMPHOCYTES ABSOLUTE AUTO 1.82 K/mm3 (0.84-5.20); LYMPHOCYTES PERCENT AUTO 27 % (21-46); MONOCYTES ABSOLUTE AUTO 0.65 K/mm3 (0.16-1.47); MONOCYTES PERCENT AUTO 10 % (4-13); Mean Corpuscular HGB 30.4 pg (26.0-34.0); Mean Corpuscular Volume 89 fL (80-100); Mean Platelet Volume 8.7 fL (9.1-12.4); NEUTROPHILS PERCENT AUTO 62 % (41-73); Platelet Count 202 K/mm3 (150-400); RDW Coefficient Variation 13.2 % (11.7-14.2); RDW Standard Deviation 43.8 fL (35.1-46.3); Red Blood Cell Count 3.88 M/mm3 (4.30-5.90); White Blood Cell Count 6.76 K/mm3 (4.00-11.30)
[2022-01-20 00:17] LABS: Albumin, Blood 3.1 g/dL (3.4-5.0); Bilirubin, Total 0.4 mg/dL (0.1-1.0); Bun/Creatinine Ratio 23.1 (12.0-20.0); Creatinine, Blood 1.21 mg/dL (0.60-1.20); Globulin, Blood 3.1 g/dL (2.2-4.0); Potassium, Blood 3.3 mmol/L (3.5-5.5); Total Protein, Blood 6.2 g/dL (6.4-8.2)
[2022-01-20] MEDS ORDERED: LOPE2C PO (04:55)
== END 2022-01-20 06:07 | disposition home or self-care (01) ==
LOC: ER 23:41
PROVIDERS: Emergency Medicine
DX: R55 Syncope and collapse (principal); R19.7 Diarrhea, unspecified; E86.0 Dehydration; J44.9 Chronic obstructive pulmonary disease, unspecified; Z79.899 Other long term (current) drug therapy; Z79.52 Long term (current) use of systemic steroids
CPT/HCPCS: 80053; 83690; 85025; 93005; 93010; 96374; 99284-25; J7030

== ENCOUNTER 2022-01-20 10:54 | Emergency (ER) | payer OTHER ==
[~2022-01-20] VITALS: Ht 172.7 cm; Wt 81.7 kg
[~2022-01-20 10:54] MED LIST changes: +LOPE2C PO
[2022-01-20 11:37] LABS: BASOPHILS ABSOLUTE AUTO 0.01 K/mm3 (0.00-0.23); BASOPHILS PERCENT AUTO 0 % (0-2); EOSINOPHILS ABSOLUTE AUTO 0.02 K/mm3 (0.00-0.68); EOSINOPHILS PERCENT AUTO 0 % (0-6); Hematocrit 36.9 % (37.0-53.0); Hemoglobin 13.1 g/dL (13.5-17.5); IMMATURE GRAN ABSOLUTE AUTO 0.01 K/mm3 (0.00-0.10); IMMATURE GRAN PERCENT AUTO 0 % (0-1); LYMPHOCYTES ABSOLUTE AUTO 1.63 K/mm3 (0.84-5.20); LYMPHOCYTES PERCENT AUTO 21 % (21-46); MONOCYTES ABSOLUTE AUTO 0.73 K/mm3 (0.16-1.47); MONOCYTES PERCENT AUTO 9 % (4-13); Mean Corpuscular HGB 31.3 pg (26.0-34.0); Mean Corpuscular HGB Conc 35.5 g/dL (31.5-36.5); Mean Corpuscular Volume 88 fL (80-100); Mean Platelet Volume 8.6 fL (9.1-12.4); NEUTROPHILS ABSOLUTE AUTO 5.41 K/mm3 (1.96-9.15); NEUTROPHILS PERCENT AUTO 69 % (41-73); Platelet Count 236 K/mm3 (150-400); RDW Coefficient Variation 13.2 % (11.7-14.2); RDW Standard Deviation 42.6 fL (35.1-46.3); Red Blood Cell Count 4.19 M/mm3 (4.30-5.90); White Blood Cell Count 7.81 K/mm3 (4.00-11.30)
[2022-01-20 11:59] LABS: Albumin, Blood 3.6 g/dL (3.4-5.0); Bilirubin, Total 0.5 mg/dL (0.1-1.0); Bun/Creatinine Ratio 24.7 (12.0-20.0); Calcium, Blood 8.6 mg/dL (8.5-10.1); Creatinine, Blood 0.97 mg/dL (0.60-1.20); Globulin, Blood 3.5 g/dL (2.2-4.0); Magnesium, Blood 2.4 mg/dL (1.6-2.4); Potassium, Blood 3.9 mmol/L (3.5-5.5); Total Protein, Blood 7.1 g/dL (6.4-8.2)
[2022-01-20 14:09] LABS: C DIFFICILE DNA NEGATIVE (Negative)
== END 2022-01-20 15:17 | disposition home or self-care (01) ==
LOC: ER 10:54
PROVIDERS: Physician Assistant; Student in an Organized Health Care Education/Training Program
DX: R19.7 Diarrhea, unspecified (principal); R10.30 Lower abdominal pain, unspecified; R11.2 Nausea with vomiting, unspecified; J44.9 Chronic obstructive pulmonary disease, unspecified; K21.9 Gastro-esophageal reflux disease without esophagitis; G47.33 Obstructive sleep apnea (adult) (pediatric); Z79.899 Other long term (current) drug therapy; Z79.52 Long term (current) use of systemic steroids
CPT/HCPCS: 80053; 83735; 85025; 87493; 93005; 93010; 96361; 96374; 99284-25; J2405; J7030

== ENCOUNTER 2022-09-16 08:10 | Inpatient (IN) | payer OTHER ==
[~2022-09-16] VITALS: Ht 172.7 cm; Wt 84.5 kg
[2022-09-16 08:44] LABS: BASOPHILS ABSOLUTE AUTO 0.03 K/mm3 (0.00-0.23); BASOPHILS PERCENT AUTO 1 % (0-2); EOSINOPHILS ABSOLUTE AUTO 0.22 K/mm3 (0.00-0.68); EOSINOPHILS PERCENT AUTO 4 % (0-6); Hematocrit 35.5 % (37.0-53.0); Hemoglobin 12.1 g/dL (13.5-17.5); IMMATURE GRAN ABSOLUTE AUTO 0.01 K/mm3 (0.00-0.10); IMMATURE GRAN PERCENT AUTO 0 % (0-1); LYMPHOCYTES PERCENT AUTO 28 % (21-46); MONOCYTES ABSOLUTE AUTO 0.43 K/mm3 (0.16-1.47); MONOCYTES PERCENT AUTO 8 % (4-13); Mean Corpuscular HGB 30.2 pg (26.0-34.0); Mean Corpuscular HGB Conc 34.1 g/dL (31.5-36.5); Mean Corpuscular Volume 89 fL (80-100); Mean Platelet Volume 8.7 fL (9.1-12.4); NEUTROPHILS ABSOLUTE AUTO 3.43 K/mm3 (1.96-9.15); NEUTROPHILS PERCENT AUTO 60 % (41-73); Platelet Count 233 K/mm3 (150-400); RDW Coefficient Variation 12.7 % (11.7-14.2); RDW Standard Deviation 41.6 fL (35.1-46.3); Red Blood Cell Count 4.01 M/mm3 (4.30-5.90); White Blood Cell Count 5.72 K/mm3 (4.00-11.30)
[2022-09-16 09:06] LABS: Albumin, Blood 3.7 g/dL (3.4-5.0); Albumin/Globulin Ratio 1.1 (0.8-1.8); Bilirubin, Total 0.4 mg/dL (0.1-1.0); Calcium, Blood 8.9 mg/dL (8.5-10.1); Creatinine, Blood 1.25 mg/dL (0.60-1.20); Globulin, Blood 3.4 g/dL (2.2-4.0); Potassium, Blood 4.6 mmol/L (3.5-5.5); Total Protein, Blood 7.1 g/dL (6.4-8.2)
[2022-09-16 11:21] LABS: Influenza A, PCR NEGATIVE (NEGATIVE); Influenza B, PCR NEGATIVE (NEGATIVE); Resp Syncytial Virus, PCR NEGATIVE (NEGATIVE); SARS-Cov-2 (COVID-19) PCR, MMC NEGATIVE (NEGATIVE)
[2022-09-16] MEDS ORDERED: TRELEGY ELLIPT1 EAC1 IH (14:20)
[2022-09-16 14:22] LABS: Percent Saturation 20.9 % (20.0-50.0)
[2022-09-16 15:06] LABS: Anti-Xa UFH, PHA Monitoring <0.10 IU/mL; International Normalized Ratio 0.98; Prothrombin Time Results 10.3 Sec (9.7-11.5)
[2022-09-16 17:11] VITALS: BP 154/90
--- NOTE | 2022-09-16 17:29 | NUR ---
PCU ADMIT / END OF SHIFT SUMMARY PT TO PCU FROM ER AT APPROX @ 1630. PT ABLE TO TRANSFER FROM [facility] TO BED BY WALKING WITH SBA. PT IS A&O X4. VSS. SPO2 >92% ON RA. JOHN SINUS RHYHTM HR 50'S-60'S. PT DENIES CP OR SOB AT THIS TIME. HEPARIN GTT INFUSING PER ORDERS. PT WITH NO OTHER COMPLAINTS AT THIS TIME.
[2022-09-16 19:25] VITALS: BP 127/89
[2022-09-16 22:52] VITALS: BP 133/89
[2022-09-16 22:59] VITALS: BP 133/89
[2022-09-17] VITALS (12 sets, daily range): BP systolic 132–154; BP diastolic 75–106
[2022-09-17 03:17] LABS: BASOPHILS ABSOLUTE AUTO 0.01 K/mm3 (0.00-0.23); BASOPHILS PERCENT AUTO 0 % (0-2); EOSINOPHILS PERCENT AUTO 0 % (0-6); Hematocrit 34.4 % (37.0-53.0); Hemoglobin 12.2 g/dL (13.5-17.5); IMMATURE GRAN ABSOLUTE AUTO 0.02 K/mm3 (0.00-0.10); IMMATURE GRAN PERCENT AUTO 0 % (0-1); LYMPHOCYTES ABSOLUTE AUTO 1.15 K/mm3 (0.84-5.20); LYMPHOCYTES PERCENT AUTO 15 % (21-46); MONOCYTES ABSOLUTE AUTO 0.34 K/mm3 (0.16-1.47); MONOCYTES PERCENT AUTO 5 % (4-13); Mean Corpuscular HGB 30.7 pg (26.0-34.0); Mean Corpuscular HGB Conc 35.5 g/dL (31.5-36.5); Mean Corpuscular Volume 86 fL (80-100); Mean Platelet Volume 8.5 fL (9.1-12.4); NEUTROPHILS ABSOLUTE AUTO 6.09 K/mm3 (1.96-9.15); NEUTROPHILS PERCENT AUTO 80 % (41-73); Platelet Count 245 K/mm3 (150-400); RDW Coefficient Variation 12.6 % (11.7-14.2); RDW Standard Deviation 39.9 fL (35.1-46.3); Red Blood Cell Count 3.98 M/mm3 (4.30-5.90); White Blood Cell Count 7.61 K/mm3 (4.00-11.30)
[2022-09-17 03:33] LABS: Bun/Creatinine Ratio 24.3 (12.0-20.0); Calcium, Blood 8.6 mg/dL (8.5-10.1); Creatinine, Blood 1.03 mg/dL (0.60-1.20); Potassium, Blood 4.4 mmol/L (3.5-5.5)
--- NOTE | 2022-09-17 06:06 | NUR ---
PT TROP CONTINUES TO TREND UP, 2100 METOPROLOL GIVEN LATE D/T BRADYCARDIA, HEPARIN INFUSING AT 14 UNITS, VSS, NO CP OR SOB
--- NOTE | 2022-09-17 12:03 | NUR ---
PT LEFT FOR NATURAL RESOURCE ECONOMIST JUST BEFORE 1100, PT REMAINS IN NATURAL RESOURCE ECONOMIST REASON FOR AFTERNOON VITALS NOT BEING OBTAINED
--- NOTE | 2022-09-17 16:55 | NUR ---
Pt. is awake in bed and welcomes my visit. Pt. is pleasant and rapport is quickly established. Pt. is unsettled about what caused the blockage and wants to be able to ask his doctor about it. Listen with empathy and a calming presence as well as normalize the Pt. experience. Prayed with Pt. Pt. verbalized gratitude for the spiritual care visit.
--- NOTE | 2022-09-17 18:40 | NUR ---
PT DENIES CP OR SOB PRE AND POST ANGIO. PT WENT FOR ANGIO WITH 1 STENT PLACED TO THE OM. RT RADIAL ACCESS, PT WITH GOOD ROM OF RT FINGERS, NO NUMBESS OR TINGLING, SKIN PWD, TR BAND IS ENTIRELY DEFALTED AWAITING REMOVAL OF TR BAND TO PLACE TEGADERM. PT A/O X4. TALKING IN FULL SENTENCES. NADN. VSS. IND USING URINAL IN BED. GOOD URINE OUTPUT. RESTING WELL
[2022-09-18 00:23] VITALS: BP 168/98
[2022-09-18 04:27] VITALS: BP 132/80
[2022-09-18 04:51] LABS: Hematocrit 35.7 % (37.0-53.0); Hemoglobin 12.3 g/dL (13.5-17.5); Mean Corpuscular HGB 29.9 pg (26.0-34.0); Mean Corpuscular HGB Conc 34.5 g/dL (31.5-36.5); Mean Corpuscular Volume 87 fL (80-100); Mean Platelet Volume 8.6 fL (9.1-12.4); Platelet Count 243 K/mm3 (150-400); RDW Coefficient Variation 12.7 % (11.7-14.2); RDW Standard Deviation 40.7 fL (35.1-46.3); Red Blood Cell Count 4.12 M/mm3 (4.30-5.90)
[2022-09-18 05:25] LABS: Bun/Creatinine Ratio 25.2 (12.0-20.0); Calcium, Blood 8.6 mg/dL (8.5-10.1); Creatinine, Blood 1.03 mg/dL (0.60-1.20); Potassium, Blood 3.7 mmol/L (3.5-5.5)
--- NOTE | 2022-09-18 05:44 | NUR ---
ONE ELEVATED B/P OVERNIGHT 160'S/90'S WITH HR OF 42, PT ASYMPTOMATIC,, OTHERWISE VSS, NO ISSUES OVERNIGHT
[2022-09-18 07:58] VITALS: BP 152/99
[2022-09-18 12:34] VITALS: BP 142/85
[2022-09-18] MEDS ORDERED: AZIT500 PO (12:46)
[2022-09-18] MEDS ORDERED: ASPI81CH PO (12:46)
[2022-09-18] MEDS ORDERED: CLOP75 PO (12:47)
[2022-09-18] MEDS ORDERED: FURO20 PO (12:47)
[2022-09-18] MEDS ORDERED: METO50ER PO (12:48)
[2022-09-18] MEDS ORDERED: NITR.4SL SL (12:49)
[2022-09-18] MEDS ORDERED: PANT40 PO (12:49)
[2022-09-18] MEDS ORDERED: OCUVITE BLUE L1 EACH PO (12:51)
[2022-09-18] MEDS ORDERED: ATOR40TA PO (12:51)
--- NOTE | 2022-09-18 14:00 | NUR ---
PT DC HOME. IV DC PRESSURE DRESSED. ANGIO SITE REMAINS INTACT NO ACTIVE BLEEDING. PT EXPRESSED UNDERSTANDING OF DC TEACHING AND DENIES FURTHER NEEDS.
== END 2022-09-18 14:17 | disposition home or self-care (01) | DRG 247 ==
LOC: ER 08:10 → MEDS 13:23 → PCU 13:23
PROVIDERS: Emergency Medicine; Internal Medicine Interventional Cardiology; ADMIT Internal Medicine
PROC: 5A09357 Assistance with Respiratory Ventilation, Less than 24 Consecutive Hours, Continuous Positive Airway Pressure (ICD-10-PCS; 2022-09-16)
PROC: 027034Z Dilation of Coronary Artery, One Artery with Drug-eluting Intraluminal Device, Percutaneous Approach (ICD-10-PCS; principal; 2022-09-17)
PROC: 4A023N7 Measurement of Cardiac Sampling and Pressure, Left Heart, Percutaneous Approach (ICD-10-PCS; 2022-09-17)
PROC: B211YZZ Fluoroscopy of Multiple Coronary Arteries using Other Contrast (ICD-10-PCS; 2022-09-17)
DX: I21.4 Non-ST elevation (NSTEMI) myocardial infarction (principal); J44.1 Chronic obstructive pulmonary disease with (acute) exacerbation; N17.9 Acute kidney failure, unspecified; I25.10 Atherosclerotic heart disease of native coronary artery without angina pectoris; I10 Essential (primary) hypertension; K21.9 Gastro-esophageal reflux disease without esophagitis; N40.0 Benign prostatic hyperplasia without lower urinary tract symptoms; R06.6 Hiccough; G47.33 Obstructive sleep apnea (adult) (pediatric); I73.00 Raynaud's syndrome without gangrene; H35.30 Unspecified macular degeneration; M19.90 Unspecified osteoarthritis, unspecified site; F12.10 Cannabis abuse, uncomplicated; I45.10 Unspecified right bundle-branch block; I44.4 Left anterior fascicular block; I34.0 Nonrheumatic mitral (valve) insufficiency; I77.819 Aortic ectasia, unspecified site; D63.8 Anemia in other chronic diseases classified elsewhere; Z20.822 Contact with and (suspected) exposure to COVID-19; Z99.81 Dependence on supplemental oxygen; Z87.19 Personal history of other diseases of the digestive system; Z98.890 Other specified postprocedural states; Z79.899 Other long term (current) drug therapy; Z79.51 Long term (current) use of inhaled steroids; Z79.2 Long term (current) use of antibiotics; Z79.52 Long term (current) use of systemic steroids; Z87.891 Personal history of nicotine dependence; Z87.01 Personal history of pneumonia (recurrent)
CPT/HCPCS: 0241U; 36415; 71046; 76937; 80048; 80053; 82607; 82728; 82746; 83540; 83550; 83880; 84145; 84484; 85025; 85027; 85347; 85379; 85520; 85610; 85730; 93005; 93010; 93306; 93454; 93458; 94640; 94664; 94760; 96374; 96375; 96376; 99152; 99153; 99285-25; A9270; C1769; C1874; C1887; C1894; C9600; J1644; J1940; J2250; J2270; J2405; J2930; J3010; J3246; J7030; J7040; J7050; Q9967

== ENCOUNTER 2022-09-18 19:30 | Inpatient (IN) | payer OTHER ==
[~2022-09-18] VITALS: Ht 172.7 cm; Wt 86.9 kg
[~2022-09-18 19:30] MED LIST changes: +ATOR40TA PO; +AZIT500 PO; +CLOP75 PO; +FURO20 PO; +METO50ER PO; +NITR.4SL SL; +OCUVITE BLUE L1 EACH PO; +TRELEGY ELLIPT1 EAC1 IH
[2022-09-18 20:01] LABS: BASOPHILS ABSOLUTE AUTO 0.05 K/mm3 (0.00-0.23); BASOPHILS PERCENT AUTO 1 % (0-2); EOSINOPHILS ABSOLUTE AUTO 0.13 K/mm3 (0.00-0.68); EOSINOPHILS PERCENT AUTO 1 % (0-6); Hematocrit 35.6 % (37.0-53.0); Hemoglobin 12.3 g/dL (13.5-17.5); IMMATURE GRAN ABSOLUTE AUTO 0.02 K/mm3 (0.00-0.10); IMMATURE GRAN PERCENT AUTO 0 % (0-1); LYMPHOCYTES ABSOLUTE AUTO 3.82 K/mm3 (0.84-5.20); LYMPHOCYTES PERCENT AUTO 39 % (21-46); MONOCYTES PERCENT AUTO 9 % (4-13); Mean Corpuscular HGB 30.5 pg (26.0-34.0); Mean Corpuscular HGB Conc 34.6 g/dL (31.5-36.5); Mean Corpuscular Volume 88 fL (80-100); Mean Platelet Volume 8.7 fL (9.1-12.4); NEUTROPHILS ABSOLUTE AUTO 4.93 K/mm3 (1.96-9.15); NEUTROPHILS PERCENT AUTO 50 % (41-73); Platelet Count 286 K/mm3 (150-400); RDW Coefficient Variation 12.7 % (11.7-14.2); RDW Standard Deviation 41.3 fL (35.1-46.3); Red Blood Cell Count 4.03 M/mm3 (4.30-5.90); White Blood Cell Count 9.85 K/mm3 (4.00-11.30)
[2022-09-18 20:07] LABS: International Normalized Ratio 1.22; Prothrombin Time Results 12.7 Sec (9.7-11.5)
[2022-09-18 20:19] LABS: Albumin, Blood 3.5 g/dL (3.4-5.0); Albumin/Globulin Ratio 1.2 (0.8-1.8); Bilirubin, Total 0.5 mg/dL (0.1-1.0); Bun/Creatinine Ratio 23.5 (12.0-20.0); Calcium, Blood 9.1 mg/dL (8.5-10.1); Creatinine, Blood 1.49 mg/dL (0.60-1.20); Potassium, Blood 4.2 mmol/L (3.5-5.5); Total Protein, Blood 6.5 g/dL (6.4-8.2)
[2022-09-18 21:52] LABS: PCO2 Venous 50.6 mmHg (38-42)
[2022-09-18 21:53] LABS: Base Excess Venous -1.9 mmol/L; Bicarbonate Venous 21.9 mmol/L (24.0-30.0)
[2022-09-19] VITALS (33 sets, daily range): BP systolic 100–172; BP diastolic 66–115
[2022-09-19 01:36] LABS: BASOPHILS ABSOLUTE AUTO 0.03 K/mm3 (0.00-0.23); BASOPHILS PERCENT AUTO 0 % (0-2); EOSINOPHILS ABSOLUTE AUTO 0.01 K/mm3 (0.00-0.68); EOSINOPHILS PERCENT AUTO 0 % (0-6); Hematocrit 32.3 % (37.0-53.0); Hemoglobin 11.3 g/dL (13.5-17.5); IMMATURE GRAN ABSOLUTE AUTO 0.06 K/mm3 (0.00-0.10); IMMATURE GRAN PERCENT AUTO 1 % (0-1); LYMPHOCYTES ABSOLUTE AUTO 1.64 K/mm3 (0.84-5.20); LYMPHOCYTES PERCENT AUTO 16 % (21-46); MONOCYTES ABSOLUTE AUTO 0.87 K/mm3 (0.16-1.47); MONOCYTES PERCENT AUTO 8 % (4-13); Mean Corpuscular HGB 30.8 pg (26.0-34.0); Mean Corpuscular Volume 88 fL (80-100); Mean Platelet Volume 8.9 fL (9.1-12.4); NEUTROPHILS ABSOLUTE AUTO 7.84 K/mm3 (1.96-9.15); NEUTROPHILS PERCENT AUTO 75 % (41-73); Platelet Count 243 K/mm3 (150-400); RDW Coefficient Variation 12.9 % (11.7-14.2); RDW Standard Deviation 40.8 fL (35.1-46.3); Red Blood Cell Count 3.67 M/mm3 (4.30-5.90); White Blood Cell Count 10.45 K/mm3 (4.00-11.30)
[2022-09-19 01:40] LABS: Magnesium, Blood 2.1 mg/dL (1.6-2.4)
[2022-09-19 01:41] LABS: Albumin, Blood 3.3 g/dL (3.4-5.0); Albumin/Globulin Ratio 1.2 (0.8-1.8); Bilirubin, Total 0.3 mg/dL (0.1-1.0); Bun/Creatinine Ratio 24.8 (12.0-20.0); Calcium, Blood 8.4 mg/dL (8.5-10.1); Creatinine, Blood 1.37 mg/dL (0.60-1.20); Globulin, Blood 2.8 g/dL (2.2-4.0); Potassium, Blood 3.8 mmol/L (3.5-5.5); Total Protein, Blood 6.1 g/dL (6.4-8.2)
--- NOTE | 2022-09-19 03:51 | NUR ---
ARRIVAL TO ICU PT ARRIVED TO ICU 12 AT 0000; CAME TO HOSPITAL FOR CHEST PAIN AND DIZZINESS; DISCHARGED FROM [facility] 09/18/22 AFTER MO WITH ONE STENT TO THE OM. HE IS A/O X4 AND ABLE TO MAKE HIS NEEDS KNOWN. ARRIVED WITH 2L NC WITH SPO2 100%; TRIALLED RA AND SPO2 >94%. HR 50-60'S. ARRIVED ON EPI INFUSING AT 4MCG/MIN AND TITRATING DOWN; SBP 120'S, MAP >65; NO C/O CHEST PAIN OR TIGHTNESS; NO NAUSEA. USES URINAL INDEPENDENTLY AND REPOSITIONING SELF IN BED. SEE ADMISSION ASSESSMENT FOR FULL ASSESSMENT. PT AT BEDSIDE FOR ARRIVAL TO ICU; WITH THE PT STABLE AND IMPROVING, VISITING HOURS ENFORCED; PT HESITANT TO LEAVE, GATHERED HER NUMBER AND GAVE HER THE DIRECT PHONE NUMBER FOR ICU. REASSURED HER THAT IF THERE WERE ANY CHANGES THAT WE WOULD CONTACT HER. ALICE'S PHONE # [phone].
--- NOTE | 2022-09-19 06:35 | NUR ---
END OF SHIFT SUMMARY NO ACUTE EVENTS SINCE ARRIVAL TO ICU; ONCE ADMIT WAS DONE HE SLEPT FOR THE REST OF THE NIGHT. HR IS A/O X4 AND ABLE TO MAKE HIS NEEDS KNOWN. SPO2 >94% ON RA WHILE SLEEPING. HR 40-60'S. SBP 120-150'S; EPI OFF SINCE 299. USES URINAL INDEPENDENTLY. WILL REPORT TO AM RN WHEN AVAILABLE.
--- NOTE | 2022-09-19 09:30 | NUR ---
ASSUMED CARE OF CARMELINA AT 0700, HE WAS WAKING UP. HE IS DENYING ANY CHEST PAIN NAUSEA OR VOMITING. HE WAS ABLE TO EAT HIS BREAKFAST DRINK HIS MILK AND COFFEE AND TAKE HIS MEDICATIONS. WAS IN BRIEFLY, MAKING SURE THAT THE PLAVIX HAD BEEN ORDERED SINCE HE IS FRESH FROM STENT PLACEMENT. HE DOES C/O FULLNESS IN HIS HEAD AND NASAL CONGESTION. ABLE TO GET HIS ROUTINE CLARITIN OKAYED BY . AWAITING HOSPITALIST FOR REMAINDER OF HOME MEDICATIONS TO BE ORDERED. PT DID NOTE THAT HIS ROOM WAS WHERE HE LOST A CLOSE FRIEND IN THE LAST COUPLE OF YEARS AND HE BECAME VISIBLY SHAKEN AND BRIEFLY TEARFUL. HIS IS NOW IN THE ROOM. MEDICATED WITH TYLENOL FOR HIS HEADACHE.
--- NOTE | 2022-09-19 16:33 | NUR ---
ORTHOSTATICS DONE PER 'S REQUEST, PT REQUESTED TIME FOR A NAP. HE HAS CONTINUED TO DENY ANY CHEST PAIN OR DISCOMFORT. HE IS FEELING BETTER FROM HIS BREATHING TREATMENTS. HE HAS BEEN ABLE TO MAKE HIS NEEDS KNOWN. HE IS TO BE TRANSFERRED TO MEDICAL FLOOR AFTER DINNER, REPORT WAS CALLED TO WILLOW AGUDELO. NO FURTHER CHANGES.
--- NOTE | 2022-09-19 17:50 | NUR ---
COBY WAS TAKEN BY WHEELCHAIR TO ROOM 350, HE WAS ABLE TO TRANSFER TO THE BED INDEPENDENTLY WITHOUT ASSISTANCE. HE CONTINUED TO BE A/O AND ABLE TO COMMUNI- JUAN CARLOS HIS NEEDS T/O THE SHIFT. EATING ALL OF HIS MEALS AND VISITING WITH FAMILY APPROPRIATELY.
--- NOTE | 2022-09-19 18:03 | NUR ---
TRANSFER OF CARE TO MEDICAL FLOOR, REPORT FROM NIKKI DAUGHERTY, ALERT AND OREINTED NO DISTRESS, CALL LIGHT WITH IN REACH, VERY PLEASANT TO CARE, DENIES CP OR DIZZYNESS, WILL RELAY TO PM RN
--- NOTE | 2022-09-20 04:16 | NUR ---
CARMELINA SLEPT ALL NIGHT WITHOUT WAKING. TELEMETRY OVERNIGHT REMAINED SINUS JOHN IN THE 50'S WITH OCCASIONAL PVC'S. EARLY IN THE EVENING, CARMELINA BECAME SEVERLY SOB WHEN HE AMBULATED FROM THE BATHROOM TO THE BED. IT EASILY TOOK HIM 20 MINUTES TO REGAIN A REGULAR/RELAXED BREATHING PATTERN... NO COMPLAINTS OF PAIN OR DISCOMFORT OVERNIGHT. ABDOMEN VERY DISTENDED AND FIRM. PATIENT COMPLAINTS OF GAS. ORDER FOR GAS-EX OBTAINED, BUT PATIENT NEVER REQUESTED IT AGAIN.
[2022-09-20 05:29] VITALS: BP 147/84
[2022-09-20 06:43] LABS: Albumin, Blood 3.2 g/dL (3.4-5.0); Anion Gap 5 mmol/L (6-16); Blood Urea Nitrogen 21 mg/dL (8-24); Bun/Creatinine Ratio 23.2 (12.0-20.0); CO2, Blood 21 mmol/L (21-32); Calcium, Blood 8.4 mg/dL (8.5-10.1); Chloride, Blood 112 mmol/L (98-108); Creatinine, Blood 0.91 mg/dL (0.60-1.20); Glomerular Filtration Rate 88 (60-); Glucose, Blood 96 mg/dL (70-99); Phosphorus, Blood 3.2 mg/dL (2.5-4.9); Potassium, Blood 4.9 mmol/L (3.5-5.5); Sodium, Blood 138 mmol/L (136-145)
[2022-09-20 07:24] VITALS: BP 163/99
[2022-09-20 09:37] VITALS: BP 148/91
[2022-09-20 09:39] VITALS: BP 136/96
[2022-09-20 09:40] VITALS: BP 130/96
[2022-09-20] MEDS ORDERED: LISI5 PO (12:48)
[2022-09-20] MEDS ORDERED: OCUVITE PO (12:51)
--- NOTE | 2022-09-20 13:30 | NUR ---
DISCHARGE SUMMARY PT AxOx4. PLEASANT AND COOPERATIVE WITH CARE. PT IS DISCHARGING HOME TODAY WITH . PT ON TELE, RUNNING SR WITH BBB AT 62 PER BUSINESS DEVELOPMENT OFFICER. ORTHOSTATIC VITALS OBTAINED, HOSPITALIST NOTIFIED. PT DENIES CP THIS SHIFT. PT GIVEN DC INSTRUCTIONS INCLUDING DISCHARGE MEDS, FOLLOW UP APPOINTMENT INFO AND PATIENT EDUCATION. PT AND VERBALIZE UNDERSTANDING AND DENY ANY FURTHER QUESTIONS AT THIS TIME. PT SAFELY ESCORTED OUT VIA WC WITH AND RN.
== END 2022-09-20 13:22 | disposition home or self-care (01) | DRG 282 ==
LOC: ER 19:30 → ICUW 23:42 → MEDS 09-19 17:38 → ENPENDDIS 09-20 11:53 → MEDS 09-20 13:22
PROVIDERS: Internal Medicine; Student in an Organized Health Care Education/Training Program; ADMIT Student in an Organized Health Care Education/Training Program
PROC: 3E033XZ Introduction of Vasopressor into Peripheral Vein, Percutaneous Approach (ICD-10-PCS; 2022-09-18)
PROC: 5A09357 Assistance with Respiratory Ventilation, Less than 24 Consecutive Hours, Continuous Positive Airway Pressure (ICD-10-PCS; principal; 2022-09-20)
DX: I95.2 Hypotension due to drugs (principal); I21.4 Non-ST elevation (NSTEMI) myocardial infarction; J44.9 Chronic obstructive pulmonary disease, unspecified; K21.9 Gastro-esophageal reflux disease without esophagitis; G47.33 Obstructive sleep apnea (adult) (pediatric); I73.00 Raynaud's syndrome without gangrene; E66.9 Obesity, unspecified; I25.10 Atherosclerotic heart disease of native coronary artery without angina pectoris; M19.90 Unspecified osteoarthritis, unspecified site; H35.30 Unspecified macular degeneration; T44.7X5A Adverse effect of beta-adrenoreceptor antagonists, initial encounter; N40.0 Benign prostatic hyperplasia without lower urinary tract symptoms; R00.1 Bradycardia, unspecified; D64.9 Anemia, unspecified; Z95.5 Presence of coronary angioplasty implant and graft; Z68.30 Body mass index [BMI] 30.0-30.9, adult; Z99.81 Dependence on supplemental oxygen; Z87.19 Personal history of other diseases of the digestive system; Z98.890 Other specified postprocedural states; Z79.51 Long term (current) use of inhaled steroids; Z79.899 Other long term (current) drug therapy; Z87.891 Personal history of nicotine dependence; Z88.8 Allergy status to other drugs, medicaments and biological substances; Z79.52 Long term (current) use of systemic steroids; Z79.82 Long term (current) use of aspirin; Z79.2 Long term (current) use of antibiotics; Z79.01 Long term (current) use of anticoagulants; Z79.02 Long term (current) use of antithrombotics/antiplatelets
CPT/HCPCS: 36415; 71045; 71275; 80053; 80069; 82803; 83605; 83690; 83735; 83880; 84484; 85025; 85610; 93005; 93010; 94640; 94660; 94664; 94762; 96365-59; 96366-59; 99285-25; A9270; J0171; J1650; J7030; J7060; Q9967

== ENCOUNTER 2022-10-25 23:40 | Inpatient (IN) | payer OTHER ==
[~2022-10-25] VITALS: Ht 170.2 cm; Wt 84.8 kg
[~2022-10-25 23:40] MED LIST changes: +LISI5 PO; +OCUVITE PO
[2022-10-25 23:57] LABS: BASOPHILS ABSOLUTE AUTO 0.01 K/mm3 (0.00-0.23); BASOPHILS PERCENT AUTO 0 % (0-2); EOSINOPHILS ABSOLUTE AUTO 0.13 K/mm3 (0.00-0.68); EOSINOPHILS PERCENT AUTO 2 % (0-6); Hematocrit 29.7 % (37.0-53.0); Hemoglobin 10.2 g/dL (13.5-17.5); IMMATURE GRAN ABSOLUTE AUTO 0.01 K/mm3 (0.00-0.10); IMMATURE GRAN PERCENT AUTO 0 % (0-1); LYMPHOCYTES ABSOLUTE AUTO 1.74 K/mm3 (0.84-5.20); LYMPHOCYTES PERCENT AUTO 31 % (21-46); MONOCYTES ABSOLUTE AUTO 0.54 K/mm3 (0.16-1.47); MONOCYTES PERCENT AUTO 10 % (4-13); Mean Corpuscular HGB Conc 34.3 g/dL (31.5-36.5); Mean Corpuscular Volume 90 fL (80-100); Mean Platelet Volume 8.5 fL (9.1-12.4); NEUTROPHILS ABSOLUTE AUTO 3.14 K/mm3 (1.96-9.15); NEUTROPHILS PERCENT AUTO 56 % (41-73); Platelet Count 191 K/mm3 (150-400); RDW Coefficient Variation 13.4 % (11.7-14.2); RDW Standard Deviation 44.5 fL (35.1-46.3); Red Blood Cell Count 3.29 M/mm3 (4.30-5.90); White Blood Cell Count 5.57 K/mm3 (4.00-11.30)
[2022-10-26 00:23] LABS: Albumin, Blood 3.1 g/dL (3.4-5.0); Albumin/Globulin Ratio 1.1 (0.8-1.8); Bilirubin, Total 0.3 mg/dL (0.1-1.0); Bun/Creatinine Ratio 20.6 (12.0-20.0); Calcium, Blood 7.7 mg/dL (8.5-10.1); Creatinine, Blood 1.65 mg/dL (0.60-1.20); Globulin, Blood 2.8 g/dL (2.2-4.0); Magnesium, Blood 1.8 mg/dL (1.6-2.4); Potassium, Blood 3.9 mmol/L (3.5-5.5); Thyroid Stimulating Hormone 3.47 uIU/mL (0.360-4.800); Total Protein, Blood 5.9 g/dL (6.4-8.2)
[2022-10-26 03:32] VITALS: BP 120/78
[2022-10-26 05:31] LABS: Bun/Creatinine Ratio 24.2 (12.0-20.0); Calcium, Blood 7.3 mg/dL (8.5-10.1); Creatinine, Blood 1.28 mg/dL (0.60-1.20); Potassium, Blood 3.7 mmol/L (3.5-5.5)
--- NOTE | 2022-10-26 06:10 | NUR ---
PATIENT ADMITTED OVERNIGHT. AOX4 AND MOVES ALL EXTREMITIES. SB/SR AND NORMOTENSIVE. ROOM AIR. NPO PER ORDERS. NO CHEST PAIN.
[2022-10-26 06:56] VITALS: BP 117/75
--- NOTE | 2022-10-26 07:05 | NUR ---
Received report from Noc RN. Patient awake and getting labs drawn. He is hard of hearing and place let hearing aide in. He is alert and oriented and is able to communicate his needs. He is on RA and sats 94% and denies any breathing concerns. He is SB 50's and is asymptomatic. He MAEW. He has 18ga RAC and flushed and SL'd and 22 ga LH and is infusing NS at 150 ml/hr. He has urinal at bedside and calls appropriately. He is currently back resting. Patient denies any current concern. He has cardiology consult today and is NPO until cardiology arrives.
--- NOTE | 2022-10-26 11:35 | NUR ---
Patient currently resting. Dr and med students have been by to assess as well as Dr Ortiz (cardiology) and signed off. Plan for possible discharge home today. He has been up several times and walked around PCU and does well. He remains on RA and sast >90%. He tolerated am mneds without difficulty, Significant other brought his trelegy in and had order for him to start. Notified Dr's of caerdiology decisions.
--- NOTE | 2022-10-26 15:30 | NUR ---
Patient has been resting and was up ion [address] another time for eval of stability. He was up and tolerated lunch at 100% and drank all liquids. He is independent in room with positioning and calls appropriately when getting up. He is being discharged and then will have ZIO placed for 30 days. Spouse called and is on her ways to leaf size picker.
--- NOTE | 2022-10-26 16:38 | NUR ---
Patient received written discharge instructions and returned understanding and significant other was told as well. He was told to hold his Lisinopril for until follow up with PCP. IV's pulled intact The spouse gathered all belonging and placed in bag. He was taken out to POV in wheelchair.
== END 2022-10-26 16:30 | disposition home or self-care (01) | DRG 309 ==
LOC: ER 23:40 → PCU 10-26 01:56
PROVIDERS: Student in an Organized Health Care Education/Training Program; ADMIT Internal Medicine
DX: R00.1 Bradycardia, unspecified (principal); N17.9 Acute kidney failure, unspecified; I25.10 Atherosclerotic heart disease of native coronary artery without angina pectoris; I95.9 Hypotension, unspecified; R07.89 Other chest pain; J44.9 Chronic obstructive pulmonary disease, unspecified; G47.33 Obstructive sleep apnea (adult) (pediatric); K21.9 Gastro-esophageal reflux disease without esophagitis; N40.0 Benign prostatic hyperplasia without lower urinary tract symptoms; G89.29 Other chronic pain; M79.601 Pain in right arm; M79.602 Pain in left arm; I73.00 Raynaud's syndrome without gangrene; H35.30 Unspecified macular degeneration; I25.2 Old myocardial infarction; Z79.82 Long term (current) use of aspirin; Z99.89 Dependence on other enabling machines and devices; Z79.899 Other long term (current) drug therapy; Z87.891 Personal history of nicotine dependence; Z95.5 Presence of coronary angioplasty implant and graft; Z98.890 Other specified postprocedural states
CPT/HCPCS: 36415; 71045; 80048; 80053; 83735; 83880; 84443; 84484; 85025; 93005; 93010; 93246; 94640; 94664; 96360; 97116; 97161; 99285-25; A9270; J0171; J1644; J7030; J7060

== ENCOUNTER 2023-01-28 05:29 | Emergency (ER) | payer OTHER ==
[~2023-01-28] VITALS: Ht 170.2 cm; Wt 77.1 kg
[~2023-01-28 05:29] MED LIST changes: +ACET500 PO; +AZELASTINE137 MCG/01; +Acetaminophen650 M1 PO; +BENADRYL25 MG PO; +BISA10S; +GUAI600T33; +KETO.5OPSO; +LOSA25 PO; +Loratadine10 MG PO; +MERIBIN5 MG PO; +MIRALAX17 GM PO; +Nexium40 MG PO; +PRAZ2 PO; +PRESERVISION A1 EAC2 PO; +TRELEGY ELLIPT1 EAC1 INH; +TRIA15CR3 TOP
[2023-01-28 05:57] LABS: BASOPHILS ABSOLUTE AUTO 0.02 K/mm3 (0.00-0.23); BASOPHILS PERCENT AUTO 0 % (0-2); EOSINOPHILS ABSOLUTE AUTO 0.02 K/mm3 (0.00-0.68); EOSINOPHILS PERCENT AUTO 0 % (0-6); Hematocrit 30.1 % (37.0-53.0); IMMATURE GRAN ABSOLUTE AUTO 0.02 K/mm3 (0.00-0.10); IMMATURE GRAN PERCENT AUTO 0 % (0-1); LYMPHOCYTES ABSOLUTE AUTO 1.08 K/mm3 (0.84-5.20); LYMPHOCYTES PERCENT AUTO 18 % (21-46); MONOCYTES ABSOLUTE AUTO 0.58 K/mm3 (0.16-1.47); MONOCYTES PERCENT AUTO 10 % (4-13); Mean Corpuscular HGB 28.1 pg (26.0-34.0); Mean Corpuscular HGB Conc 33.2 g/dL (31.5-36.5); Mean Corpuscular Volume 85 fL (80-100); Mean Platelet Volume 8.7 fL (9.1-12.4); NEUTROPHILS ABSOLUTE AUTO 4.15 K/mm3 (1.96-9.15); NEUTROPHILS PERCENT AUTO 71 % (41-73); Platelet Count 224 K/mm3 (150-400); RDW Coefficient Variation 12.1 % (11.7-14.2); RDW Standard Deviation 37.2 fL (35.1-46.3); Red Blood Cell Count 3.56 M/mm3 (4.30-5.90); White Blood Cell Count 5.87 K/mm3 (4.00-11.30)
[2023-01-28 06:19] LABS: Albumin, Blood 3.8 g/dL (3.4-5.0); Albumin/Globulin Ratio 1.2 (0.8-1.8); Bilirubin, Total 0.4 mg/dL (0.1-1.0); Bun/Creatinine Ratio 12.7 (12.0-20.0); Calcium, Blood 8.7 mg/dL (8.5-10.1); Creatinine, Blood 1.1 mg/dL (0.60-1.20); Globulin, Blood 3.2 g/dL (2.2-4.0); Potassium, Blood 3.9 mmol/L (3.5-5.5)
[2023-01-28 07:50] VITALS: BP 141/75
== END 2023-01-28 07:52 | disposition home or self-care (01) ==
LOC: ER 05:29
PROVIDERS: Emergency Medicine
DX: U07.1 COVID-19 (principal); Z87.891 Personal history of nicotine dependence; J44.9 Chronic obstructive pulmonary disease, unspecified; G47.30 Sleep apnea, unspecified; Z79.899 Other long term (current) drug therapy
CPT/HCPCS: 71045; 80053; 84484; 85025; 93005; 93010; J2405; J7030

== ENCOUNTER 2023-09-05 16:54 | Emergency (ER) | payer OTHER ==
[~2023-09-05] VITALS: Ht 172.7 cm; Wt 86.2 kg
[~2023-09-05 16:54] MED LIST changes: +CELEBREX200 MG PO; +SILDENAFIL CIT100 MG PO; +SUCR1 PO
[2023-09-05 17:51] LABS: BASOPHILS ABSOLUTE AUTO 0.03 K/mm3 (0.00-0.23); BASOPHILS PERCENT AUTO 1 % (0-2); EOSINOPHILS ABSOLUTE AUTO 0.15 K/mm3 (0.00-0.68); EOSINOPHILS PERCENT AUTO 3 % (0-6); Hemoglobin 7.5 g/dL (13.5-17.5); IMMATURE GRAN ABSOLUTE AUTO 0.01 K/mm3 (0.00-0.10); IMMATURE GRAN PERCENT AUTO 0 % (0-1); LYMPHOCYTES ABSOLUTE AUTO 2.14 K/mm3 (0.84-5.20); LYMPHOCYTES PERCENT AUTO 40 % (21-46); MONOCYTES ABSOLUTE AUTO 0.64 K/mm3 (0.16-1.47); MONOCYTES PERCENT AUTO 12 % (4-13); Mean Corpuscular HGB 25.3 pg (26.0-34.0); Mean Corpuscular HGB Conc 31.3 g/dL (31.5-36.5); Mean Corpuscular Volume 81 fL (80-100); Mean Platelet Volume 8.9 fL (9.1-12.4); NEUTROPHILS ABSOLUTE AUTO 2.39 K/mm3 (1.96-9.15); NEUTROPHILS PERCENT AUTO 45 % (41-73); Platelet Count 257 K/mm3 (150-400); RDW Standard Deviation 41.1 fL (35.1-46.3); Red Blood Cell Count 2.97 M/mm3 (4.30-5.90); White Blood Cell Count 5.36 K/mm3 (4.00-11.30)
[2023-09-05 18:02] LABS: Albumin, Blood 3.3 g/dL (3.4-5.0); Albumin/Globulin Ratio 1.2 (0.8-1.8); Bilirubin, Total 0.3 mg/dL (0.1-1.0); Bun/Creatinine Ratio 21.1 (12.0-20.0); Calcium, Blood 7.9 mg/dL (8.5-10.1); Creatinine, Blood 1.23 mg/dL (0.60-1.20); Globulin, Blood 2.7 g/dL (2.2-4.0); Potassium, Blood 4.1 mmol/L (3.5-5.5)
[2023-09-05 21:00] VITALS: BP 128/74
[2023-09-05 23:00] LABS: Source, Urine Clean Catch
[2023-09-05 23:04] LABS: Bilirubin, Urine Neg (Neg); Blood, Urine Neg (Neg); Glucose Qualitative, Urine Neg (Neg); Ketones, Urine Neg (Neg); Leukocyte Esterase, Urine 1+ (Neg); Nitrite, Urine Neg (Neg); Protein, Urine Neg (Neg); Urobilinogen, Urine NORM (Normal); pH, Urine 6.5 (5.0-8.0)
[2023-09-05 23:11] LABS: Appearance, Urine Clear (Clear); Color, Urine Red (P-Yellow)
[2023-09-05 23:15] LABS: Bacteria Not Seen /hpf; Red Blood Cells, Urine Not Seen /hpf (0-2); Squamous Epithelial Cells Not Seen /hpf (Few); White Blood Cells, Urine 0-2 /hpf (0-5)
== END 2023-09-05 23:38 | disposition short-term general hospital (02) ==
LOC: ER 16:54
PROVIDERS: Nurse Practitioner; Student in an Organized Health Care Education/Training Program
DX: K92.2 Gastrointestinal hemorrhage, unspecified (principal); R10.10 Upper abdominal pain, unspecified; J44.9 Chronic obstructive pulmonary disease, unspecified; K21.9 Gastro-esophageal reflux disease without esophagitis; G47.33 Obstructive sleep apnea (adult) (pediatric); I25.2 Old myocardial infarction; N40.0 Benign prostatic hyperplasia without lower urinary tract symptoms; Z79.899 Other long term (current) drug therapy; Z79.02 Long term (current) use of antithrombotics/antiplatelets; Z79.51 Long term (current) use of inhaled steroids; Z87.891 Personal history of nicotine dependence; Z95.5 Presence of coronary angioplasty implant and graft; Z99.81 Dependence on supplemental oxygen
CPT/HCPCS: 71046; 74177; 80053; 81001; 82272; 83690; 84484; 85025; 93005; 93010; 99285-25; Q9967

== ENCOUNTER 2023-11-12 23:22 | Emergency (ER) | payer OTHER ==
[~2023-11-12] VITALS: Ht 170.2 cm; Wt 79.8 kg
[2023-11-12] MEDS ORDERED: NS 1,000 ML IV SCH (23:30)
[2023-11-12] MEDS ORDERED: Ondansetron HCl 2 MG / ML 2ML Vial IV ONE (23:30)
[2023-11-12] MEDS ORDERED: Ipratropium/Albuterol SulF 2.5-0.5MG/3 ML Amp INH ONE (23:30)
[2023-11-12] MEDS ORDERED: MethylPREDNISolone Sod Succ 125 MG Vial IV ONE (23:35)
[2023-11-12] MEDS ORDERED: Mag Sulfate 1 GM/D5% 100ML 100 ML IV ONE (23:35)
[2023-11-12 23:38] VITALS: BP 143/92
[2023-11-12 23:40] LABS: BASOPHILS ABSOLUTE AUTO 0.01 K/mm3 (0.00-0.23); BASOPHILS PERCENT AUTO 0 % (0-2); Base Excess Venous -5.6 mmol/L; Bicarbonate Venous 20.4 mmol/L (24.0-30.0); EOSINOPHILS PERCENT AUTO 2 % (0-6); Hematocrit 24.8 % (37.0-53.0); Hemoglobin 7.7 g/dL (13.5-17.5); IMMATURE GRAN ABSOLUTE AUTO 0.01 K/mm3 (0.00-0.10); IMMATURE GRAN PERCENT AUTO 0 % (0-1); LYMPHOCYTES ABSOLUTE AUTO 0.87 K/mm3 (0.84-5.20); LYMPHOCYTES PERCENT AUTO 16 % (21-46); MONOCYTES ABSOLUTE AUTO 0.55 K/mm3 (0.16-1.47); MONOCYTES PERCENT AUTO 10 % (4-13); Mean Corpuscular HGB 23.2 pg (26.0-34.0); Mean Corpuscular Volume 75 fL (80-100); Mean Platelet Volume 8.4 fL (9.1-12.4); NEUTROPHILS ABSOLUTE AUTO 3.94 K/mm3 (1.96-9.15); NEUTROPHILS PERCENT AUTO 72 % (41-73); PCO2 Venous 27.2 mmHg (38-42); Platelet Count 239 K/mm3 (150-400); RDW Coefficient Variation 14.7 % (11.7-14.2); RDW Standard Deviation 39.8 fL (35.1-46.3); Red Blood Cell Count 3.32 M/mm3 (4.30-5.90); White Blood Cell Count 5.48 K/mm3 (4.00-11.30); pH Blood Venous 7.44 (7.34-7.37)
[2023-11-12 23:59] LABS: Albumin, Blood 3.4 g/dL (3.4-5.0); Albumin/Globulin Ratio 1.1 (0.8-1.8); Bilirubin, Total 0.4 mg/dL (0.1-1.0); Creatinine, Blood 0.95 mg/dL (0.60-1.20); Globulin, Blood 3.2 g/dL (2.2-4.0); Potassium, Blood 3.9 mmol/L (3.5-5.5); Total Protein, Blood 6.6 g/dL (6.4-8.2)
[2023-11-13] MEDS ORDERED: Vibramycin100 MG PO (00:57)
[2023-11-13] MEDS ORDERED: Prednisone50 MG PO (00:57)
[2023-11-13] MEDS ORDERED: Doxycycline Hyclate 100 MG TAB PO ONE (01:00)
== END 2023-11-13 01:26 | disposition home or self-care (01) ==
LOC: ER 23:22
PROVIDERS: Emergency Medicine
DX: J44.1 Chronic obstructive pulmonary disease with (acute) exacerbation (principal); G47.33 Obstructive sleep apnea (adult) (pediatric); K21.9 Gastro-esophageal reflux disease without esophagitis; Z87.891 Personal history of nicotine dependence; Z79.82 Long term (current) use of aspirin; Z79.02 Long term (current) use of antithrombotics/antiplatelets; Z79.51 Long term (current) use of inhaled steroids; Z79.899 Other long term (current) drug therapy
CPT/HCPCS: 71045; 80053; 82803; 83690; 83880; 84484; 85025; 93005; 93010; 94640; 94664; 96365; 96375; 99285-25; A9270; J2919; J3475; J7030

== ENCOUNTER 2023-11-28 12:23 | Day surgery (SDC) | payer OTHER ==
[~2023-11-28] VITALS: Ht 172.7 cm; Wt 77.2 kg
[~2023-11-28 12:23] MED LIST changes: +Atropine Sulfate 0.1 MG/ML 10ML SYR ONE; +Glycopyrrolate 0.2 MG/ML 1MLVIAL ONE; +Lactated Ringer's 1,000 ML IV ONE; +Lidocaine 2% 5 ML SDV ONE; +Lidocaine HCl/Pf 1% 5 ML VIAL ONE; +Methylene Blue 1% 100 MG/10 ML VIAL ONE; +Ondansetron HCl 2 MG / ML 2ML Vial ONE; +Prednisone50 MG PO; +Vibramycin100 MG PO; +ePHEDrine Sulfate 50 MG/ML 1ML Injection ONE
[2023-11-28] MEDS ORDERED: propofoL 20 ML IV ONE ×2 (13:46)
[2023-11-28] MEDS ORDERED: propofoL 0 ML IV ONE (13:52)
[2023-11-28] MEDS ORDERED: Lactated Ringer's 1,000 ML IV ONE (14:10)
[2023-11-28 15:25] VITALS: BP 100/88
--- NOTE | 2023-11-28 15:27 | NUR ---
11/28/23 1527 Jessica Yeagre PT WITH EXP WHEEZES AND OCCASIONAL COUGH AFTER PROCEDURE. HE REPORTS THAT COUGH IS CHRONIC COUGH FROM HIS COPD. DENIES SOB. DISCUSSED DUONEB PER ANESTHESIA RECORDS PRIOR TO DISCHARGE ORDERS BUT BOTH PATIENT AND STATE THAT THEY WOULD LIKE TO DO IT ONCE THEY GET HOME PATIENT HAS NEBULIZER ALREADY AT HOME. THEY VERBALLY AGREE TO GO STRAIGHT HOME AND HAVE PATIENT DO DUONEB SOON THEY GET HOME.
== END 2023-11-28 15:21 | disposition home or self-care (01) ==
LOC: ORSCSDS 12:23
PROVIDERS: Internal Medicine Gastroenterology
PROC: 0DBM8ZX Excision of Descending Colon, Via Natural or Artificial Opening Endoscopic, Diagnostic (ICD-10-PCS; principal; 2023-11-28 13:45)
PROC: 0DJ08ZZ Inspection of Upper Intestinal Tract, Via Natural or Artificial Opening Endoscopic (ICD-10-PCS; principal; 2023-11-28 13:45)
PROC: 0DBH8ZX Excision of Cecum, Via Natural or Artificial Opening Endoscopic, Diagnostic (ICD-10-PCS; principal; 2023-11-28 13:45)
DX: D50.9 Iron deficiency anemia, unspecified (principal); D12.0 Benign neoplasm of cecum; D12.4 Benign neoplasm of descending colon; K44.9 Diaphragmatic hernia without obstruction or gangrene; Z86.010 Personal history of colon polyps; J44.9 Chronic obstructive pulmonary disease, unspecified; I10 Essential (primary) hypertension; I25.10 Atherosclerotic heart disease of native coronary artery without angina pectoris; G47.33 Obstructive sleep apnea (adult) (pediatric); I25.2 Old myocardial infarction; Z87.891 Personal history of nicotine dependence; Z79.899 Other long term (current) drug therapy
CPT/HCPCS: 88305; J0461; J2001; J2405; J2704; J7120; Q9968

== ENCOUNTER 2024-01-07 19:03 | Emergency (ER) | payer OTHER ==
[~2024-01-07] VITALS: Ht 170.2 cm; Wt 79.4 kg
[~2024-01-07 19:03] MED LIST changes: -Atropine Sulfate 0.1 MG/ML 10ML SYR ONE; -Glycopyrrolate 0.2 MG/ML 1MLVIAL ONE; -Lactated Ringer's 1,000 ML IV ONE; -Lidocaine 2% 5 ML SDV ONE; -Lidocaine HCl/Pf 1% 5 ML VIAL ONE; -Methylene Blue 1% 100 MG/10 ML VIAL ONE; -Ondansetron HCl 2 MG / ML 2ML Vial ONE; -ePHEDrine Sulfate 50 MG/ML 1ML Injection ONE
[2024-01-07 19:19] LABS: BASOPHILS ABSOLUTE AUTO 0.02 K/mm3 (0.00-0.23); BASOPHILS PERCENT AUTO 0 % (0-2); EOSINOPHILS ABSOLUTE AUTO 0.16 K/mm3 (0.00-0.68); EOSINOPHILS PERCENT AUTO 3 % (0-6); Hematocrit 23.3 % (37.0-53.0); Hemoglobin 7.4 g/dL (13.5-17.5); IMMATURE GRAN ABSOLUTE AUTO 0.01 K/mm3 (0.00-0.10); IMMATURE GRAN PERCENT AUTO 0 % (0-1); LYMPHOCYTES PERCENT AUTO 33 % (21-46); MONOCYTES ABSOLUTE AUTO 0.58 K/mm3 (0.16-1.47); MONOCYTES PERCENT AUTO 11 % (4-13); Mean Corpuscular HGB 23.9 pg (26.0-34.0); Mean Corpuscular HGB Conc 31.8 g/dL (31.5-36.5); Mean Corpuscular Volume 75 fL (80-100); Mean Platelet Volume 8.5 fL (9.1-12.4); NEUTROPHILS ABSOLUTE AUTO 2.87 K/mm3 (1.96-9.15); NEUTROPHILS PERCENT AUTO 53 % (41-73); Platelet Count 218 K/mm3 (150-400); RDW Coefficient Variation 16.9 % (11.7-14.2); Red Blood Cell Count 3.09 M/mm3 (4.30-5.90); White Blood Cell Count 5.44 K/mm3 (4.00-11.30)
[2024-01-07 19:43] LABS: Albumin/Globulin Ratio 1.1 (0.8-1.8); Bilirubin, Total 0.3 mg/dL (0.1-1.0); Bun/Creatinine Ratio 17.6 (12.0-20.0); Calcium, Blood 8.2 mg/dL (8.5-10.1); Creatinine, Blood 1.02 mg/dL (0.60-1.20); Globulin, Blood 2.8 g/dL (2.2-4.0); Magnesium, Blood 2.1 mg/dL (1.6-2.4); Potassium, Blood 3.7 mmol/L (3.5-5.5); Total Protein, Blood 5.8 g/dL (6.4-8.2)
[2024-01-07 20:19] LABS: Influenza A, PCR NEGATIVE (NEGATIVE); Influenza B, PCR NEGATIVE (NEGATIVE); Resp Syncytial Virus, PCR NEGATIVE (NEGATIVE); SARS-Cov-2 (COVID-19) PCR, MMC NEGATIVE (NEGATIVE)
[2024-01-07] MEDS ORDERED: Sod Ferric Gluc Complx/Sucrose 125 MG in NS 100 ML IV ONE (20:55)
[2024-01-07 22:18] VITALS: BP 122/78
== END 2024-01-07 22:26 | disposition home or self-care (01) ==
LOC: ER 19:03
PROVIDERS: Student in an Organized Health Care Education/Training Program
DX: D50.9 Iron deficiency anemia, unspecified (principal); Z79.899 Other long term (current) drug therapy; Z79.82 Long term (current) use of aspirin; Z87.891 Personal history of nicotine dependence; J44.9 Chronic obstructive pulmonary disease, unspecified; K21.9 Gastro-esophageal reflux disease without esophagitis; G47.33 Obstructive sleep apnea (adult) (pediatric); I25.2 Old myocardial infarction
CPT/HCPCS: 0241U; 71046; 80053; 83735; 83880; 84484; 85025; 93005; 93010; 96365; 99285-25; J2916

== ENCOUNTER 2024-02-09 19:46 | Observation (INO) | payer OTHER ==
[~2024-02-09] VITALS: Ht 170.2 cm; Wt 80.7 kg
[2024-02-09 21:35] LABS: BASOPHILS ABSOLUTE AUTO 0.03 K/mm3 (0.00-0.23); BASOPHILS PERCENT AUTO 0 % (0-2); EOSINOPHILS ABSOLUTE AUTO 0.12 K/mm3 (0.00-0.68); EOSINOPHILS PERCENT AUTO 1 % (0-6); Hematocrit 28.3 % (37.0-53.0); Hemoglobin 9.1 g/dL (13.5-17.5); IMMATURE GRAN ABSOLUTE AUTO 0.03 K/mm3 (0.00-0.10); IMMATURE GRAN PERCENT AUTO 0 % (0-1); LYMPHOCYTES ABSOLUTE AUTO 1.44 K/mm3 (0.84-5.20); LYMPHOCYTES PERCENT AUTO 15 % (21-46); MONOCYTES ABSOLUTE AUTO 0.61 K/mm3 (0.16-1.47); MONOCYTES PERCENT AUTO 6 % (4-13); Mean Corpuscular HGB Conc 32.2 g/dL (31.5-36.5); Mean Corpuscular Volume 78 fL (80-100); Mean Platelet Volume 8.6 fL (9.1-12.4); NEUTROPHILS ABSOLUTE AUTO 7.46 K/mm3 (1.96-9.15); NEUTROPHILS PERCENT AUTO 77 % (41-73); Platelet Count 253 K/mm3 (150-400); RDW Coefficient Variation 18.2 % (11.7-14.2); Red Blood Cell Count 3.64 M/mm3 (4.30-5.90); White Blood Cell Count 9.69 K/mm3 (4.00-11.30)
[2024-02-09 21:55] LABS: Albumin, Blood 3.5 g/dL (3.4-5.0); Albumin/Globulin Ratio 1.2 (0.8-1.8); Bilirubin, Total 0.3 mg/dL (0.1-1.0); Bun/Creatinine Ratio 21.4 (12.0-20.0); Calcium, Blood 8.3 mg/dL (8.5-10.1); Creatinine, Blood 1.03 mg/dL (0.60-1.20); Potassium, Blood 4.5 mmol/L (3.5-5.5); Total Protein, Blood 6.5 g/dL (6.4-8.2)
[2024-02-10] MEDS ORDERED: FLU VACC TS2024-25(6MOS UP)/PF 45 MCG/0.5 ML SYRINGE IM ONE (00:35)
[2024-02-10] MEDS ORDERED: NS 1,000 ML IV SCH ×2 (00:35→15:00)
[2024-02-10] MEDS ORDERED: Ondansetron HCl 2 MG / ML 2ML Vial IV PRN (00:40)
[2024-02-10 07:31] LABS: Source, Urine Clean Catch
[2024-02-10 07:35] LABS: Appearance, Urine Clear (Clear); Bilirubin, Urine Neg (Neg); Blood, Urine Neg (Neg); Color, Urine Yellow (P-Yellow); Glucose Qualitative, Urine Neg (Neg); Ketones, Urine Neg (Neg); Leukocyte Esterase, Urine Neg (Neg); Nitrite, Urine Neg (Neg); Protein, Urine 1+ (Neg); Specific Gravity, Urine 1.025 (1.003-1.022); Urobilinogen, Urine NORM (Normal)
[2024-02-10 07:49] LABS: U Cannabinoids Screen DETECTED; U Opiates Screen DETECTED
[2024-02-10 07:50] LABS: U Amphetamine Screen Not Detected; U Barbituate Screen Not Detected; U Benzodiazapine Screen Not Detected; U Buprenorphine Screen Not Detected; U Cocaine Screen Not Detected; U Methadone Screen Not Detected; U Methamphetamine Screen Not Detected; U Oxycodone Screen Not Detected; U Phencyclidine Screen Not Detected
[2024-02-10] MEDS ORDERED: Enoxaparin 40 MG/0.4 ML SYR SC SCH (09:00)
[2024-02-10] MEDS ORDERED: TIMO10T RIGHTEYE (10:05)
[2024-02-10] MEDS ORDERED: ATOR40TA PO (10:05)
[2024-02-10] MEDS ORDERED: TIMO.5OPSO RIGHTEYE (10:05)
[2024-02-10] MEDS ORDERED: PANTOPRAZOLE SO40 M2 PO (10:06)
[2024-02-10] MEDS ORDERED: LORA10ER PO (10:06)
[2024-02-10] MEDS ORDERED: TAMSULOSIN HCL0.4 M1 PO (10:06)
[2024-02-10 10:40] LABS: BASOPHILS ABSOLUTE AUTO 0.02 K/mm3 (0.00-0.23); BASOPHILS PERCENT AUTO 0 % (0-2); EOSINOPHILS ABSOLUTE AUTO 0.12 K/mm3 (0.00-0.68); EOSINOPHILS PERCENT AUTO 2 % (0-6); Hematocrit 27.9 % (37.0-53.0); Hemoglobin 8.9 g/dL (13.5-17.5); IMMATURE GRAN ABSOLUTE AUTO 0.02 K/mm3 (0.00-0.10); IMMATURE GRAN PERCENT AUTO 0 % (0-1); LYMPHOCYTES PERCENT AUTO 27 % (21-46); MONOCYTES ABSOLUTE AUTO 0.44 K/mm3 (0.16-1.47); MONOCYTES PERCENT AUTO 7 % (4-13); Mean Corpuscular HGB Conc 31.9 g/dL (31.5-36.5); Mean Corpuscular Volume 78 fL (80-100); Mean Platelet Volume 8.7 fL (9.1-12.4); NEUTROPHILS ABSOLUTE AUTO 3.79 K/mm3 (1.96-9.15); NEUTROPHILS PERCENT AUTO 63 % (41-73); Platelet Count 242 K/mm3 (150-400); RDW Standard Deviation 52.4 fL (35.1-46.3); Red Blood Cell Count 3.56 M/mm3 (4.30-5.90); White Blood Cell Count 5.99 K/mm3 (4.00-11.30)
[2024-02-10] MEDS ORDERED: Amoxicillin500 MG PO (10:40)
[2024-02-10] MEDS ORDERED: Albuterol 2.5 MG/3 ML VIAL INH PRN ×2 (10:50→12:00)
[2024-02-10] MEDS ORDERED: Azelastine 0.1% Nasal Spray PRN (10:50)
[2024-02-10 10:53] LABS: Albumin, Blood 3.2 g/dL (3.4-5.0); Albumin/Globulin Ratio 1.1 (0.8-1.8); Bilirubin, Total 0.4 mg/dL (0.1-1.0); Calcium, Blood 8.6 mg/dL (8.5-10.1); Creatinine, Blood 0.86 mg/dL (0.60-1.20); Potassium, Blood 4.3 mmol/L (3.5-5.5); Total Protein, Blood 6.2 g/dL (6.4-8.2)
[2024-02-10] MEDS ORDERED: Polyethylene Glycol 3350 17 gm PO PRN (10:55)
[2024-02-10] MEDS ORDERED: BIOTIN 2.5 MG PO SCH (11:00)
[2024-02-10] MEDS ORDERED: Atorvastatin 40 MG Tab PO SCH (11:00)
[2024-02-10] MEDS ORDERED: Clopidogrel Bisulfate 75 MG Tab PO SCH (11:00)
[2024-02-10] MEDS ORDERED: Losartan Potassium 25 MG Tab PO SCH (11:00)
[2024-02-10] MEDS ORDERED: Albuterol HFA200 ACT/6.7 GM INH INH PRN (11:05)
[2024-02-10] MEDS ORDERED: Amoxicillin 500 MG Cap PO SCH (11:15)
[2024-02-10] MEDS ORDERED: Acetaminophen 325 MG TABLET PO SCH (12:00)
[2024-02-10 12:06] VITALS: BP 135/89
[2024-02-10] MEDS ORDERED: FAMO20 PO (12:46)
[2024-02-10] MEDS ORDERED: SIMBRINZA 1%-0.28 M1 RIGHTEYE (13:08)
[2024-02-10] MEDS ORDERED: DIFLUPREDNATE5 ML LEFTEYE (13:09)
[2024-02-10] MEDS ORDERED: PREDNISOLONE ACE5 ML RIGHTEYE (13:10)
[2024-02-10] MEDS ORDERED: TRELEGY ELLIPT1 EACH INH (13:14)
[2024-02-10 15:26] VITALS: BP 130/79
[2024-02-10] MEDS ORDERED: Pantoprazole Sodium 40 MG Tab PO SCH (16:30)
--- NOTE | 2024-02-10 16:42 | NUR ---
SHIFT SUMMARY MR HOPE WAS ADMITTED TO THE MEDICAL UNIT FROM ER AT NOON TODAY. HE IS ORIENTATED X4. HARD OF HEARING WITH HEARING AID IN LEFT EAR. POOR VISION TO BOTH EYES, HE DESCRIBES MILKY FILM IN HIS VISION AND FLOATERS. PULSE OX IN THE LOW 80S ON ADMISSION ON 2L NC OXYGEN, PT SAID HE IS ON 3L AT BASELINE. PUT ON 3L NC, IN THE 90S, DR RAO NOTIFIED. CONTINUOUS PULSE OX ON. PT SAID HE USES A CPAP AT NIGHT AT HOME AND OXYGEN 3L NEEDED, HE DOES NOT WANT TO USE A CPAP TONIGHT. HE VERBALISED UNDERSTANDING OF FALL RISK, ADMITTED WITH NEAR SYNCOPY, AND SAID THAT HE WILL NOT GET OUT OF BED WITHOUT ASSISTANCE. BED ALARM SET BUT PT DOES FORGET TO CALL SOMETIMES BEFORE GETTING UP. REINFORCED EDUCATION AND PT VERBALISED UNDERSTANDING. HE DOES NOT USE A WALKER AT HOME, SAID HE'S PRETTY INDEPENDENT AND IS SOMEWHAT UNSTEADY WHEN WALKING. HE DECLINES A WALKER HERE IN HOSPITAL. HE DID VOICE CONCERN ABOUT FINANCES FOR MEDICATIONS, SOMETIMES FOOD AND MEDICAL COSTS. LEFT FOR CORPORATE SECURITY MANAGER. ON TELEMETRY IN [place], NO CALLS FROM [employer]. PT SMOKES MJ FOR PAIN FROM BROKEN BONES AND REPAIRS TO LEFT HIP AND BOTH LEGS. HE DENIES HAVING ANY MJ WITH HIM. HE DECLINES PAIN MEDICATIONS. IN BED NOW, CALL LIGHT IN REACH, BED ALARM SET. BED LOW.
[2024-02-10] MEDS ORDERED: EYE LEFTEYE SCH (17:00)
[2024-02-10] MEDS ORDERED: DIFLUPREDNATE 0.05% LEFTEYE SCH (17:00)
[2024-02-10 19:13] VITALS: BP 140/82
[2024-02-10] MEDS ORDERED: PrednisoLONE 1% Opth Susp 5 ML RIGHTEYE SCH (21:00)
[2024-02-10] MEDS ORDERED: Timolol 0.5% Opth Soln 5 ML BOTHEYES SCH (21:00)
[2024-02-10] MEDS ORDERED: BRIMONIDINE RIGHTEYE SCH (21:00)
[2024-02-10] MEDS ORDERED: BRINZOLAMIDE RIGHTEYE SCH (21:00)
[2024-02-11 03:28] VITALS: BP 126/80
--- NOTE | 2024-02-11 06:44 | NUR ---
BLADDER SCAN DONE Q SHIFT 351ML AT 0430
--- NOTE | 2024-02-11 06:47 | NUR ---
SHIFT SUMMARY PT RECEPTIVE TO CARE AND ABLE WITH BSA TO AMBULATE TO BATHROOM URINAL. PT TOOK HS MEDICATIONS. ALERT AND ORIENTED TIMES 4. PT HAS HEARING AID IN LEFT EAR AND VISION IS POOR. PT IS ON CONTINUOUS PULSE OX. BED IN LOW POSITION, CALL LIGHT WITHIN REACH, RAILS TIMES 2. WAS CONTACTED BY [employer], WHO ADVISED PT HAD DIPPED INTO THE 30 S AND WANTED TO KNOW ABOUT ADJUST THE ALARM LEVELS, ADV THAT I WOULD CHECK ON PT AND GET BACK TO THEM.
[2024-02-11 07:22] VITALS: BP 122/73
[2024-02-11] MEDS ORDERED: TRELLEGY ELLIPTA INH SCH ×2 (09:00→12:40)
[2024-02-11] MEDS ORDERED: Loratadine 10 MG Tab PO SCH (09:00)
[2024-02-11] MEDS ORDERED: Tamsulosin HCl 0.4 MG Cap PO SCH (09:00)
[2024-02-11] MEDS ORDERED: TIMOLOL MALEAT1 EAC1 RIGHTEYE (12:09)
--- NOTE | 2024-02-11 13:36 | NUR ---
DISCHARGE NOTE MR HOPE SAID THAT HE FEELS READY FOR DISCHARGE. ZIO PATCH ORDERED. CHARGE NURSE NOTIFIED DR RAO THAT THE ZIO PATCH CAN NOT BE PLACED ON THE WEEKEND AND ORDER WAS FAXED TO [facility] FOR PLACEMENT ON TUESDAY. PT AND HIS VERBALISED UNDERSTANDING OF DISCHARGE INSTRUCTIONS. MR HOPE DENIES FEELING SHORT OF BREATH OR HAVING ANY NEW CONCERNS. HE SAID HE FEELS LIKE HE DOES AT BASELINE. HE AND HIS VERBALISED UNDERSTANDING OF WRITTEN AND VERBAL DISCHARGE INSTRUCTIONS. PIV AND TELEMETRY REMOVED. AWAITING RADIATION ONCOLOGIST WHEELCHAIR RIDE TO VEHICLE.
== END 2024-02-11 13:56 | disposition home or self-care (01) ==
LOC: ER 19:46 → ERHOLD 19:47 → ER 02-10 00:33 → ERHOLD 02-10 11:59 → MEDS 02-10 11:59 → ENPENDDIS 02-11 11:15 → MEDS 02-11 13:56
PROVIDERS: Student in an Organized Health Care Education/Training Program; ADMIT Internal Medicine
DX: R00.1 Bradycardia, unspecified (principal); J44.9 Chronic obstructive pulmonary disease, unspecified; K21.9 Gastro-esophageal reflux disease without esophagitis; I73.00 Raynaud's syndrome without gangrene; I21.4 Non-ST elevation (NSTEMI) myocardial infarction; G47.30 Sleep apnea, unspecified; Z79.899 Other long term (current) drug therapy; Z79.82 Long term (current) use of aspirin
CPT/HCPCS: 36415; 71045; 80053; 83880; 84443; 84484; 85025; 85379; 93005; 93010; 93306; 94640; 94664; 94760; 94762; 96360-59; 96361; 96372; 96372-59; 97110; 97161; 97530; 99285-25; A9270; G0378; J1650; J7030

== ENCOUNTER → 2024-04-25 | Outpatient (CLI) | payer MEDICARE ==
[~2024-04-25] MED LIST changes: +Amoxicillin500 MG PO; +DIFLUPREDNATE5 ML LEFTEYE; +FAMO20 PO; +LORA10ER PO; +PANTOPRAZOLE SO40 M2 PO; +PREDNISOLONE ACE5 ML RIGHTEYE; +SIMBRINZA 1%-0.28 M1 RIGHTEYE; +TAMSULOSIN HCL0.4 M1 PO; +TIMO.5OPSO RIGHTEYE; +TIMO10T RIGHTEYE; +TIMOLOL MALEAT1 EAC1 RIGHTEYE; +TRELEGY ELLIPT1 EACH INH
[2024-04-25 19:01] LABS: BASOPHILS ABSOLUTE AUTO 0.03 K/mm3 (0.00-0.23); BASOPHILS PERCENT AUTO 1 % (0-2); EOSINOPHILS ABSOLUTE AUTO 0.22 K/mm3 (0.00-0.68); EOSINOPHILS PERCENT AUTO 3 % (0-6); Hematocrit 34.5 % (37.0-53.0); Hemoglobin 11.8 g/dL (13.5-17.5); IMMATURE GRAN ABSOLUTE AUTO 0.01 K/mm3 (0.00-0.10); IMMATURE GRAN PERCENT AUTO 0 % (0-1); LYMPHOCYTES ABSOLUTE AUTO 2.18 K/mm3 (0.84-5.20); LYMPHOCYTES PERCENT AUTO 34 % (21-46); MONOCYTES ABSOLUTE AUTO 0.51 K/mm3 (0.16-1.47); MONOCYTES PERCENT AUTO 8 % (4-13); Mean Corpuscular HGB 29.9 pg (26.0-34.0); Mean Corpuscular HGB Conc 34.2 g/dL (31.5-36.5); Mean Corpuscular Volume 87 fL (80-100); NEUTROPHILS ABSOLUTE AUTO 3.53 K/mm3 (1.96-9.15); NEUTROPHILS PERCENT AUTO 54 % (41-73); Platelet Count 229 K/mm3 (150-400); RDW Coefficient Variation 18.6 % (11.7-14.2); RDW Standard Deviation 59.8 fL (35.1-46.3); Red Blood Cell Count 3.95 M/mm3 (4.30-5.90); White Blood Cell Count 6.48 K/mm3 (4.00-11.30)
[2024-04-25 19:54] LABS: Percent Saturation 26.4 % (20.0-50.0)
== END ==
LOC: LAB SHORT 16:27 → LAB 16:27
PROVIDERS: Internal Medicine Hematology & Oncology
DX: D50.0 Iron deficiency anemia secondary to blood loss (chronic) (principal)
CPT/HCPCS: 36415; 82728; 83540; 83550; 85025

== ENCOUNTER → 2024-07-03 | Outpatient (CLI) | payer OTHER ==
[2024-07-03 16:27] LABS: BASOPHILS ABSOLUTE AUTO 0.03 K/mm3 (0.00-0.23); BASOPHILS PERCENT AUTO 1 % (0-2); EOSINOPHILS ABSOLUTE AUTO 0.15 K/mm3 (0.00-0.68); EOSINOPHILS PERCENT AUTO 3 % (0-6); Hematocrit 37.1 % (37.0-53.0); IMMATURE GRAN ABSOLUTE AUTO 0.01 K/mm3 (0.00-0.10); IMMATURE GRAN PERCENT AUTO 0 % (0-1); LYMPHOCYTES ABSOLUTE AUTO 1.72 K/mm3 (0.84-5.20); LYMPHOCYTES PERCENT AUTO 33 % (21-46); MONOCYTES ABSOLUTE AUTO 0.47 K/mm3 (0.16-1.47); MONOCYTES PERCENT AUTO 9 % (4-13); Mean Corpuscular HGB 31.5 pg (26.0-34.0); Mean Corpuscular Volume 90 fL (80-100); Mean Platelet Volume 8.8 fL (9.1-12.4); NEUTROPHILS ABSOLUTE AUTO 2.81 K/mm3 (1.96-9.15); NEUTROPHILS PERCENT AUTO 54 % (41-73); Platelet Count 238 K/mm3 (150-400); RDW Standard Deviation 45.9 fL (35.1-46.3); Red Blood Cell Count 4.13 M/mm3 (4.30-5.90); White Blood Cell Count 5.19 K/mm3 (4.00-11.30)
== END ==
LOC: LAB SHORT 14:20 → LAB 14:20
PROVIDERS: Internal Medicine Hematology & Oncology
DX: D50.0 Iron deficiency anemia secondary to blood loss (chronic) (principal)
CPT/HCPCS: 85025

== ENCOUNTER 2024-09-04 18:01 | Emergency (ER) | payer OTHER ==
[~2024-09-04] VITALS: Ht 170.2 cm; Wt 81.2 kg
[2024-09-04 18:42] LABS: BASOPHILS ABSOLUTE AUTO 0.04 K/mm3 (0.00-0.23); BASOPHILS PERCENT AUTO 1 % (0-2); EOSINOPHILS ABSOLUTE AUTO 0.17 K/mm3 (0.00-0.68); EOSINOPHILS PERCENT AUTO 2 % (0-6); Hematocrit 34.6 % (37.0-53.0); Hemoglobin 12.1 g/dL (13.5-17.5); IMMATURE GRAN ABSOLUTE AUTO 0.02 K/mm3 (0.00-0.10); IMMATURE GRAN PERCENT AUTO 0 % (0-1); LYMPHOCYTES ABSOLUTE AUTO 1.69 K/mm3 (0.84-5.20); LYMPHOCYTES PERCENT AUTO 21 % (21-46); MONOCYTES PERCENT AUTO 9 % (4-13); Mean Corpuscular HGB 32.8 pg (26.0-34.0); Mean Corpuscular Volume 94 fL (80-100); Mean Platelet Volume 9.3 fL (9.1-12.4); NEUTROPHILS ABSOLUTE AUTO 5.36 K/mm3 (1.96-9.15); NEUTROPHILS PERCENT AUTO 67 % (41-73); Platelet Count 206 K/mm3 (150-400); RDW Coefficient Variation 13.1 % (11.7-14.2); RDW Standard Deviation 45.2 fL (35.1-46.3); Red Blood Cell Count 3.69 M/mm3 (4.30-5.90); White Blood Cell Count 7.98 K/mm3 (4.00-11.30)
[2024-09-04 19:22] LABS: Albumin, Blood 3.5 g/dL (3.4-5.0); Albumin/Globulin Ratio 1.3 (0.8-1.8); Bilirubin, Total 0.4 mg/dL (0.1-1.0); Bun/Creatinine Ratio 23.5 (12.0-20.0); Calcium, Blood 8.1 mg/dL (8.5-10.1); Creatinine, Blood 0.98 mg/dL (0.60-1.20); Globulin, Blood 2.7 g/dL (2.2-4.0); Potassium, Blood 4.2 mmol/L (3.5-5.5); Total Protein, Blood 6.2 g/dL (6.4-8.2)
[2024-09-04] MEDS ORDERED: Pantoprazole Sodium 40 MG Tab PO ONE (21:20)
[2024-09-04 22:00] VITALS: BP 149/88
== END 2024-09-04 22:15 | disposition home or self-care (01) ==
LOC: ER 18:01
PROVIDERS: Emergency Medicine
DX: R55 Syncope and collapse (principal); R00.1 Bradycardia, unspecified; N40.0 Benign prostatic hyperplasia without lower urinary tract symptoms; I25.2 Old myocardial infarction; J44.9 Chronic obstructive pulmonary disease, unspecified; K21.9 Gastro-esophageal reflux disease without esophagitis; Z87.891 Personal history of nicotine dependence; Z79.899 Other long term (current) drug therapy; Z79.52 Long term (current) use of systemic steroids
CPT/HCPCS: 71046; 80053; 84484; 85025; 93005; 93010; 99285-25; A9270

== ENCOUNTER 2024-11-22 21:56 | Emergency (ER) | payer OTHER ==
[~2024-11-22] VITALS: Ht 170.2 cm; Wt 81.7 kg
[2024-11-23] MEDS ORDERED: CELEBREX200 MG PO (05:34)
[2024-11-23] MEDS ORDERED: SILD25T (05:35)
[2024-11-23] MEDS ORDERED: NS 1,000 ML IV SCH (06:10)
[2024-11-23] MEDS ORDERED: Ondansetron HCl 2 MG / ML 2ML Vial IV ONE (06:10)
[2024-11-23 07:02] LABS: BASOPHILS ABSOLUTE AUTO 0.01 K/mm3 (0.00-0.23); BASOPHILS PERCENT AUTO 0 % (0-2); EOSINOPHILS ABSOLUTE AUTO 0.02 K/mm3 (0.00-0.68); EOSINOPHILS PERCENT AUTO 0 % (0-6); Hematocrit 36.4 % (37.0-53.0); Hemoglobin 12.8 g/dL (13.5-17.5); IMMATURE GRAN ABSOLUTE AUTO 0.02 K/mm3 (0.00-0.10); IMMATURE GRAN PERCENT AUTO 0 % (0-1); LYMPHOCYTES ABSOLUTE AUTO 1.01 K/mm3 (0.84-5.20); LYMPHOCYTES PERCENT AUTO 12 % (21-46); MONOCYTES ABSOLUTE AUTO 0.47 K/mm3 (0.16-1.47); MONOCYTES PERCENT AUTO 6 % (4-13); Mean Corpuscular HGB Conc 35.2 g/dL (31.5-36.5); Mean Corpuscular Volume 92 fL (80-100); NEUTROPHILS ABSOLUTE AUTO 6.61 K/mm3 (1.96-9.15); NEUTROPHILS PERCENT AUTO 81 % (41-73); NRBC ABSOLUTE 0.00 K/mm3 (0.00-0.02); NRBC Auto 0.0 /100 WBC (0.0-0.2); Platelet Count 208 K/mm3 (150-400); RDW Coefficient Variation 13.1 % (11.7-14.2); RDW Standard Deviation 44.8 fL (35.1-46.3)
[2024-11-23 07:26] LABS: Alanine Aminotransfer (ALT/SGP 23.0 U/L (12-78); Albumin, Blood 3.7 g/dL (3.4-5.0); Albumin/Globulin Ratio 1.1 (0.8-1.8); Anion Gap 10.0 mmol/L (3-11); Aspartate Aminotrans (AST/SGOT 18.0 U/L (12-37); Bilirubin, Total 0.7 mg/dL (0.1-1.0); Blood Urea Nitrogen 28.0 mg/dL (8-24); CO2, Blood 24.0 mmol/L (21-32); Calcium, Blood 8.9 mg/dL (8.5-10.1); Chloride, Blood 106.0 mmol/L (98-108); Creatinine, Blood 1.28 mg/dL (0.60-1.20); Globulin, Blood 3.4 g/dL (2.2-4.0); Glucose, Blood 122.0 mg/dL (70-99); Potassium, Blood 4.2 mmol/L (3.5-5.5); Sodium, Blood 136.0 mmol/L (136-145); Total Protein, Blood 7.1 g/dL (6.4-8.2)
[2024-11-23] MEDS ORDERED: Albuterol 2.5 MG/3 ML VIAL INH SCH (08:05)
[2024-11-23] MEDS ORDERED: ONDA4ODT MM (08:08)
[2024-11-23] MEDS ORDERED: LOPE2C PO (08:08)
[2024-11-23 09:17] VITALS: BP 138/108
== END 2024-11-23 09:05 | disposition home or self-care (01) ==
LOC: ER 21:56
PROVIDERS: Emergency Medicine
DX: E86.0 Dehydration (principal); R11.2 Nausea with vomiting, unspecified; R19.7 Diarrhea, unspecified; Z79.899 Other long term (current) drug therapy; Z79.2 Long term (current) use of antibiotics; K21.9 Gastro-esophageal reflux disease without esophagitis; G47.33 Obstructive sleep apnea (adult) (pediatric); M19.90 Unspecified osteoarthritis, unspecified site; Z87.891 Personal history of nicotine dependence
CPT/HCPCS: 70450; 80053; 85025; 93005; 93010; 96361; 96374; 99285-25; A9270; J2405; J7030

== ENCOUNTER → 2025-03-21 | Outpatient (CLI) | payer OTHER ==
[~2025-03-21] MED LIST changes: +SILD25T
== END ==
LOC: LAB SHORT 06:20 → LAB 06:20
DX: J44.1 Chronic obstructive pulmonary disease with (acute) exacerbation (principal)
CPT/HCPCS: 87070; 87205

== ENCOUNTER 2025-04-22 07:59 | Inpatient (IN) | payer OTHER ==
[2025-04-22] VITALS (14 sets, daily range): BP systolic 93–160; BP diastolic 53–98
[~2025-04-22] VITALS: Ht 170.2 cm; Wt 85.7 kg
[2025-04-22] MEDS ORDERED: Morphine Sulfate 4 MG/1 ML Injection IV ONE (08:10)
[2025-04-22] MEDS ORDERED: Ondansetron HCl 2 MG / ML 2ML Vial IV ONE (08:10)
[2025-04-22 08:35] LABS: BASOPHILS ABSOLUTE AUTO 0.03 K/mm3 (0.00-0.23); BASOPHILS PERCENT AUTO 0 % (0-2); EOSINOPHILS ABSOLUTE AUTO 0.13 K/mm3 (0.00-0.68); EOSINOPHILS PERCENT AUTO 2 % (0-6); Hematocrit 36.5 % (37.0-53.0); Hemoglobin 12.4 g/dL (13.5-17.5); IMMATURE GRAN ABSOLUTE AUTO 0.02 K/mm3 (0.00-0.10); IMMATURE GRAN PERCENT AUTO 0 % (0-1); LYMPHOCYTES ABSOLUTE AUTO 1.79 K/mm3 (0.84-5.20); LYMPHOCYTES PERCENT AUTO 26 % (21-46); MONOCYTES ABSOLUTE AUTO 0.51 K/mm3 (0.16-1.47); MONOCYTES PERCENT AUTO 7 % (4-13); Mean Corpuscular HGB Conc 34.0 g/dL (31.5-36.5); Mean Corpuscular Volume 94 fL (80-100); NEUTROPHILS ABSOLUTE AUTO 4.54 K/mm3 (1.96-9.15); NEUTROPHILS PERCENT AUTO 65 % (41-73); NRBC ABSOLUTE 0.00 K/mm3 (0.00-0.02); NRBC Auto 0.0 /100 WBC (0.0-0.2); Platelet Count 199 K/mm3 (150-400); RDW Coefficient Variation 13.2 % (11.7-14.2); RDW Standard Deviation 45.1 fL (35.1-46.3)
[2025-04-22] MEDS ORDERED: HYDROmorphone HCl/Pf 1MG SYR IV ONE (09:05)
[2025-04-22 09:10] LABS: Alanine Aminotransfer (ALT/SGP 24.0 U/L (12-78); Albumin, Blood 3.7 g/dL (3.4-5.0); Albumin/Globulin Ratio 1.1 (0.8-1.8); Anion Gap 8.0 mmol/L (3-11); Aspartate Aminotrans (AST/SGOT 22.0 U/L (12-37); Bilirubin, Total 0.6 mg/dL (0.1-1.0); Blood Urea Nitrogen 17.0 mg/dL (8-24); CO2, Blood 22.0 mmol/L (21-32); Calcium, Blood 8.9 mg/dL (8.5-10.1); Chloride, Blood 111.0 mmol/L (98-108); Creatinine, Blood 0.85 mg/dL (0.60-1.20); Globulin, Blood 3.5 g/dL (2.2-4.0); Glucose, Blood 97.0 mg/dL (70-99); Potassium, Blood 4.3 mmol/L (3.5-5.5); Sodium, Blood 137.0 mmol/L (136-145); Total Protein, Blood 7.2 g/dL (6.4-8.2)
[2025-04-22] MEDS ORDERED: Bupivacaine 0.5% HCl 5 MG/ML 30MLVIAL ONE (10:33)
[2025-04-22] MEDS ORDERED: FentaNYL Citrate 50 MCG/ML 5 ML Injection ONE ×2 (10:42)
[2025-04-22] MEDS ORDERED: FentaNYL Citrate 50 MCG/ML 2 ML Injection ONE (10:42)
[2025-04-22] MEDS ORDERED: Oxymetazoline 0.05% Nasal Relief Spray 15mL BTL ONE (10:46)
[2025-04-22] MEDS ORDERED: FentaNYL Citrate 50 MCG/ML 2 ML Injection IV PRN ×3 (10:50→14:45)
[2025-04-22] MEDS ORDERED: Ondansetron HCl 2 MG / ML 2ML Vial IV PRN ×2 (10:55→14:40)
[2025-04-22] MEDS ORDERED: Albuterol 2.5 MG/3 ML VIAL INH PRN (10:55)
[2025-04-22] MEDS ORDERED: HYDROmorphone HCl/Pf 1MG SYR IV PRN (10:55)
[2025-04-22] MEDS ORDERED: CeFAZolin Sodium 2,000 MG in NS 100 ML IV SCH (11:10)
[2025-04-22] MEDS ORDERED: Rocuronium Bromide 10 MG/ML 5ML Injection IV ONE (11:14)
[2025-04-22] MEDS ORDERED: Dexamethasone Sod Phos 10 MG/ML 1ML VIAL ONE (11:14)
[2025-04-22] MEDS ORDERED: SuccINYLCHOLINE Chloride 100 MG/5 ML 5MLSYR ONE (11:14)
[2025-04-22] MEDS ORDERED: Ondansetron HCl 2 MG / ML 2ML Vial ONE (11:14)
[2025-04-22] MEDS ORDERED: Sugammadex Sodium 200 MG/2ML SDV (100 MG/ML) ONE (11:15)
[2025-04-22] MEDS ORDERED: Albuterol 2.5 MG/3 ML VIAL INH ONE (11:15)
--- NOTE | 2025-04-22 11:32 | NUR ---
History, Chart, Medications and Allergies reviewed before start of procedure. PATEINT HAD COFFEE WITH CREAM APPROX 0400. ANETHESIA NOTIFIED. ALBUTEROL GIVEN PER ANETHESIA AND HOME ROUTINE FOR TREATMETN. WEARS 2LNC AT HOME. IN PLACE WITH SPO2 100. REPORTS CRAMPING ABDOMINAL PAIN 7/10 AT TIME, REPORTS IMPROVED AFTER PAIN MEDS. Surgical site prepped with 2% Chlorhexidine cloth wipe.
[2025-04-22] MEDS ORDERED: GUAI600T33 PO (14:06)
[2025-04-22] MEDS ORDERED: HYDROcodone 5-APAP 325 TAB PO PRN (14:45)
[2025-04-22] MEDS ORDERED: FLU VACC TS2025(65UP)/MF59C/PF 45 MCG/0.5 ML SYRINGE IM SCH (14:45)
--- NOTE | 2025-04-22 17:10 | NUR ---
SHIFT SUMMARY: A&OX4, PLEASANT, COOPERATIVE. VSS. ON 3L OXYGEN PER NASAL CANNULA. 2-3 L NASAL CANNULA IS BASELINE. DENIES PAIN. DENIES NAUSEA. AQUACEL TO ABDOMEN C/D/I. TOLERATING CLEAR LIQUID DIET. ADMITTED FROM PACU FOR HERNIA REPAIR TODAY.
[2025-04-23] MEDS ORDERED: Albuterol 2.5 MG/3 ML VIAL INH PRN (00:55)
[2025-04-23 03:51] VITALS: BP 152/80
[2025-04-23 04:47] LABS: BASOPHILS ABSOLUTE AUTO 0.01 K/mm3 (0.00-0.23); BASOPHILS PERCENT AUTO 0 % (0-2); EOSINOPHILS ABSOLUTE AUTO 0.00 K/mm3 (0.00-0.68); EOSINOPHILS PERCENT AUTO 0 % (0-6); Hematocrit 31.1 % (37.0-53.0); Hemoglobin 11.0 g/dL (13.5-17.5); IMMATURE GRAN ABSOLUTE AUTO 0.02 K/mm3 (0.00-0.10); IMMATURE GRAN PERCENT AUTO 0 % (0-1); LYMPHOCYTES ABSOLUTE AUTO 1.02 K/mm3 (0.84-5.20); LYMPHOCYTES PERCENT AUTO 15 % (21-46); MONOCYTES ABSOLUTE AUTO 0.45 K/mm3 (0.16-1.47); MONOCYTES PERCENT AUTO 7 % (4-13); Mean Corpuscular HGB Conc 35.4 g/dL (31.5-36.5); Mean Corpuscular Volume 92 fL (80-100); NEUTROPHILS ABSOLUTE AUTO 5.19 K/mm3 (1.96-9.15); NEUTROPHILS PERCENT AUTO 78 % (41-73); NRBC ABSOLUTE 0.00 K/mm3 (0.00-0.02); NRBC Auto 0.0 /100 WBC (0.0-0.2); Platelet Count 177 K/mm3 (150-400); RDW Coefficient Variation 13.0 % (11.7-14.2); RDW Standard Deviation 43.6 fL (35.1-46.3)
[2025-04-23 05:08] LABS: Anion Gap 8.0 mmol/L (3-11); Blood Urea Nitrogen 13.0 mg/dL (8-24); CO2, Blood 23.0 mmol/L (21-32); Calcium, Blood 8.5 mg/dL (8.5-10.1); Chloride, Blood 110.0 mmol/L (98-108); Creatinine, Blood 0.87 mg/dL (0.60-1.20); Glucose, Blood 118.0 mg/dL (70-99); Potassium, Blood 3.9 mmol/L (3.5-5.5); Sodium, Blood 137.0 mmol/L (136-145)
[2025-04-23 07:42] VITALS: BP 148/89
--- NOTE | 2025-04-23 07:57 | NUR ---
SHIFT SUMMARY POD 1 HERNIA REPAIR. DRESSING TO ABDOMEN C/D/I. VSS. A&O X4. ELEM. PAIN MANAGED WELL PER EMAR. PT TOLERATING CLEAR LIQUIDS. PT DENIES N&V. 1P ASSIST TO BATHROOM. SPO2 >92% ON 3L O2 VIA NC. PT RESTING IN BED WATCHING TV. CALL LIGHT WITHIN REACH.
--- NOTE | 2025-04-23 09:19 | NUR ---
PALLIATIVE CARE CONSULT: CONSULT RECEIVED FOR AD/POLST. REVIEWED MEDICAL RECORD. PT DOES NOT HAVE POLST OR ADVANCE DIRECTIVE ON FILE OR WITH [facility]. PT ELECTED FULL CODE.
[2025-04-23] MEDS ORDERED: Albuterol HFA200 ACT/6.7 GM INH INH PRN (11:05)
[2025-04-23] MEDS ORDERED: Formoterol/Mometasone MDI 5/100 mcg 13 GM INH SCH (11:15)
[2025-04-23] MEDS ORDERED: Ipratropium Bromide INH 0.02% 0.5 mg/2.5ML Vial INH SCH (11:15)
--- NOTE | 2025-04-23 13:20 | NUR ---
rounded on pt. he was asleep at this time. discussed with bsrn. no needs from pc at this time
[2025-04-23 14:53] VITALS: BP 128/59
--- NOTE | 2025-04-23 15:21 | NUR ---
Spiritual Care Visit. Pt. is awake and welcomes my visit. Pt. is pleasant and looks familiar to this food and beverage assistant manager. As a life review is facilitated it is apparent that this food and beverage assistant manager has seen this pt. in previous hospital visits. Pt. verbalizes an expectation that he might be discharged home later today. Listen with interest and empathy. Pt. verbalizes that he has good support at home. Considered matters of chen and belief. Pryaed for the Pt. Pt. joyfullty verbalized gratitude for the spiritual care visit.
--- NOTE | 2025-04-23 17:41 | NUR ---
PATIENT A/OX4, UP INDEPENDENTLY IN ROOM. PAIN WELL MANAGED WITH NORCO. PATIENT HAD 2 SMALL BM'S THIS SHIFT AND IS PASSING GAS. DENIES ANY NAUSEA THIS SHIFT. DRESSING TO MIDLINE INCISION REMAINS C/D/I. 3LO2 THIS SHIFT WHICH IS BASELINE. BREATHING TREATMENTS PER RT. NO NEW CONCERNS THIS SHIFT, PATIENT HOPING TO DC HOME TOMORROW.
[2025-04-23 19:19] VITALS: BP 133/86
[2025-04-23] MEDS ORDERED: Brimonidine Tartrate 0.2% Opth 5 ml RIGHTEYE SCH (21:00)
[2025-04-24 04:29] VITALS: BP 128/97
--- NOTE | 2025-04-24 05:49 | NUR ---
SHIFT SUMMARY POD 2 S/P HERNIA REPAIR. DRESSING TO MIDLINE CDI. MEDICATED X 1 FOR PAIN PER EMAR. A/OX4 WITH VSS. IND IN ROOM, IS VOIDING AND PASSING FLATUS. REPORTS 2 SMALL BM YESTERDAY. IV PATENT/SL. ISELA PO, DENIES N/V. CURRENTLY UP IN BED DRINKING COFFEE, DENIES NEEDS. HAS CALL LIGHT IN REACH. WILL GIVE REPORT TO ONCOMING RN.
[2025-04-24 07:23] VITALS: BP 157/87
[2025-04-24] MEDS ORDERED: HYDR1TAB94 PO (08:32)
--- NOTE | 2025-04-24 09:25 | NUR ---
DISCHARGE SUMMARY POST OP VENTRAL HERNIA REPAIR, A/OX4, VSS, TOLERATING PO, HAD 2 BM'S YESTERDAY PER REPORT, PAIN WELL MANAGED, IV ACCESS REMOVED DURING DC INSTRUCTIONS, ABD BINDER PROVIDED FOR COMFORT, SURGERY REMOVED OUTER DRESSING THIS AM DURING ROUNDS LEAVING THE DERMABOND IN PLACE. DISCUSSED DC INSTRUCTIONS INCLUDING HOME CARE, MEDICATIONS, AND FOLLOW UP APPOINTMENTS. NO QUESTIONS AT THIS TIME.
== END 2025-04-24 09:21 | disposition home or self-care (01) | DRG 355 ==
LOC: ER 07:59 → SURS 08:00
PROVIDERS: Student in an Organized Health Care Education/Training Program; ADMIT Surgery
PROC: 0WQF0ZZ Repair Abdominal Wall, Open Approach (ICD-10-PCS; principal; 2025-04-22 11:30)
DX: K43.6 Other and unspecified ventral hernia with obstruction, without gangrene (principal); I25.10 Atherosclerotic heart disease of native coronary artery without angina pectoris; J44.9 Chronic obstructive pulmonary disease, unspecified; E66.9 Obesity, unspecified; E78.5 Hyperlipidemia, unspecified; K21.9 Gastro-esophageal reflux disease without esophagitis; G47.33 Obstructive sleep apnea (adult) (pediatric); N40.0 Benign prostatic hyperplasia without lower urinary tract symptoms; M19.90 Unspecified osteoarthritis, unspecified site; I25.2 Old myocardial infarction; Z99.81 Dependence on supplemental oxygen; Z79.51 Long term (current) use of inhaled steroids; Z95.5 Presence of coronary angioplasty implant and graft; Z87.891 Personal history of nicotine dependence
CPT/HCPCS: 36415; 74177; 80048; 80053; 83690; 84484; 85025; 93005; 93010; 94640; 94664; 94760; 94762; 96374-59; 96375-59; 99285-25; A9270; J0330; J0690; J1100; J1171; J2270; J2405; J2704; J3010; J7120; Q9967